=== PATIENT | male | born 1940 | race Caucasian/White ===

== ENCOUNTER 2018-02-03 00:14 | Inpatient (IN) | payer MEDICARE, BC ==
[~2018-02-03] VITALS: Ht 185.4 cm; Wt 103.1 kg
[2018-02-03 00:35] VITALS: BP 137/93
[2018-02-03] MEDS ORDERED: MAG HYDROX/AL HYDROX/SIMETH 30 ML ORAL.SUSP PO PRN (00:45)
[2018-02-03] MEDS ORDERED: ACETAMINOPHEN 325 MG TABLET PO PRN (00:45)
[2018-02-03] MEDS ORDERED: MAGNESIUM HYDROXIDE 2,400 MG/30 ML ORAL.SUSP. PO PRN (00:45)
[2018-02-03] MEDS ORDERED: LEVO50TA5 PO (00:59)
[2018-02-03] MEDS ORDERED: CLON0.5T11 PO (00:59)
[2018-02-03] MEDS ORDERED: AMLO5TAB2 PO (00:59)
[2018-02-03] MEDS ORDERED: OLAN5TAB5 PO (00:59)
[2018-02-03] MEDS ORDERED: POLY17PO5 PO (00:59)
[2018-02-03] MEDS ORDERED: MELA3TAB2 PO ×2 (00:59)
[2018-02-03] MEDS ORDERED: OLAN2.5T3 PO (00:59)
[2018-02-03] MEDS ORDERED: NON FORMULARY ITEM (Melatonin 5 MG) PO PRN (01:00)
[2018-02-03] MEDS ORDERED: clonazePAM 0.5 MG TABLET PO PRN (01:00)
[2018-02-03 05:50] VITALS: BP 145/92
[2018-02-03] MEDS: LEVOTHYROXINE 50 MCG TABLET PO SCH (06:26)
[2018-02-03 08:15] LABS: BASO # 0.1 x10^3/uL (0.0-0.2); BASO % 1 % (0-3); EOS # 0.1 x10^3/uL (0.0-0.7); EOS % 2 % (0-3); HEMATOCRIT 54.2 % (39.0-53.0); HEMOGLOBIN 18.9 g/dL (13.0-17.5); LYMPH # 1.7 x10^3/uL (1.0-4.8); LYMPH % 27 % (24-48); MEAN CORPUSCULAR HEMOGLOBIN 34 pg (25-35); MEAN CORPUSCULAR HGB CONC 35 g/dL (31-37); MEAN CORPUSCULAR VOLUME 97 fL (79-100); MONO # 0.6 x10^3/uL (0.0-1.1); MONO % 10 % (0-9); NEUT # 3.8 x10^3uL (1.8-7.7); NEUT % 60 % (31-73); PLATELET COUNT 187 x10^3/uL (140-400); RED BLOOD COUNT 5.59 x10^6/uL (4.30-5.70); RED CELL DISTRIBUTION WIDTH 13.2 % (11.5-14.5); WHITE BLOOD COUNT 6.3 x10^3/uL (4.0-11.0)
[2018-02-03 08:28] LABS: CALCIUM 9.6 mg/dL (8.5-10.1); CREATININE 1.4 mg/dL (0.7-1.3); GFR 48.9; POTASSIUM 3.9 mmol/L (3.5-5.1); TOTAL BILIRUBIN 0.8 mg/dL (0.2-1.0); TOTAL PROTEIN 8.2 g/dL (6.4-8.2)
[2018-02-03] MEDS ORDERED: POLYETHYLENE GLYCOL 3350 17 GM PACKET. PO PRN (09:00)
[2018-02-03] MEDS: amLODIPine BESYLATE 5 MG TABLET PO SCH (09:53)
[2018-02-03 14:17] LABS: THYROID STIM HORMONE (TSH) 2.454 uIU/mL (0.358-3.740)
[2018-02-03 16:00] VITALS: BP 123/79
[2018-02-03] MEDS: CHOLECALCIFEROL (VITAMIN D3) 50,000 UNIT CAPSULE PO SCH (17:15)
--- NOTE | 2018-02-03 21:20 | PDOC ---
Exam Note: Maurice Note: Please also refer to the separate dictated note~for this date of service dictated separately.~Patient seen individually. Discussed the patient with Nursing staff reviewed the chart.~Reviewed interim history and current functioning. Reviewed vital signs,~Labs/ Radiology~and current medications noted below. Continue current treatment with the changes noted in the dictated addendum note Assessment: Vital Signs: Vital Signs Date Time Temp Pulse Resp B/P (MAP) Pulse Ox O2 Delivery O2 Flow Rate FiO2 02/03/18 16:00 98.2 88 16 123/79 (94) 94 I&O Intake and Output 02/03/18 07:00 Intake Total 0 ml Balance 0 ml Intake Oral 0 ml # Voids 1 Labs: Laboratory Tests Test 02/03/18 07:51 White Blood Count 6.3 x10^3/uL (4.0-11.0) Red Blood Count 5.59 x10^6/uL (4.30-5.70) Hemoglobin 18.9 g/dL (13.0-17.5) H Hematocrit 54.2 % (39.0-53.0) H Mean Corpuscular Volume 97 fL (79-100) Mean Corpuscular Hemoglobin 34 pg (25-35) Mean Corpuscular Hemoglobin Concent 35 g/dL (31-37) Red Cell Distribution Width 13.2 % (11.5-14.5) Platelet Count 187 x10^3/uL (140-400) Neutrophils (%) (Auto) 60 % (31-73) Lymphocytes (%) (Auto) 27 % (24-48) Monocytes (%) (Auto) 10 % (0-9) H Eosinophils (%) (Auto) 2 % (0-3) Basophils (%) (Auto) 1 % (0-3) Neutrophils # (Auto) 3.8 x10^3uL (1.8-7.7) Lymphocytes # (Auto) 1.7 x10^3/uL (1.0-4.8) Monocytes # (Auto) 0.6 x10^3/uL (0.0-1.1) Eosinophils # (Auto) 0.1 x10^3/uL (0.0-0.7) Basophils # (Auto) 0.1 x10^3/uL (0.0-0.2) Sodium Level 141 mmol/L (136-145) Potassium Level 3.9 mmol/L (3.5-5.1) Chloride Level 104 mmol/L (98-107) Carbon Dioxide Level 30 mmol/L (21-32) Anion Gap 7 (6-14) Blood Urea Nitrogen 13 mg/dL (8-26) Creatinine 1.4 mg/dL (0.7-1.3) H Estimated GFR (Cockcroft-Gault) 48.9 BUN/Creatinine Ratio 9 (6-20) Glucose Level 88 mg/dL (70-99) Calcium Level 9.6 mg/dL (8.5-10.1) Magnesium Level 2.0 mg/dL (1.8-2.4) Iron Level 106 ug/dL (65-175) Total Iron Binding Capacity 307 ug/dL (250-450) Iron Saturation 35 % (15-34) H Total Bilirubin 0.8 mg/dL (0.2-1.0) Aspartate Amino Transferase (AST) 26 U/L (15-37) Alanine Aminotransferase (ALT) 29 U/L (16-63) Alkaline Phosphatase 83 U/L (46-116) Total Protein 8.2 g/dL (6.4-8.2) Albumin 4.0 g/dL (3.4-5.0) Albumin/Globulin Ratio 1.0 (1.0-1.7) Triglycerides Level 97 mg/dL (0-150) Cholesterol Level 154 mg/dL (0-200) LDL Cholesterol, Calculated 94 mg/dL (0-100) VLDL Cholesterol, Calculated 19 mg/dL (0-40) Non-HDL Cholesterol Calculated 113 mg/dL (0-129) HDL Cholesterol 41 mg/dL (40-60) Cholesterol/HDL Ratio 3.0 Vitamin B12 Level 304 pg/mL (247-911) 25-Hydroxy Vitamin D Total 20.0 ng/mL (30-100) L Thyroid Stimulating Hormone (TSH) 2.454 uIU/mL (0.358-3.740) Treponema pallidum Antibody Nonreactive (Nonreactive) Current Medications: Meds: Current Medications Acetaminophen (Tylenol) 650 mg PRN Q6HRS PRN PO PAIN / TEMP; Start 02/03/18 at 00:45 Al Hydroxide/Mg Hydroxide (Mylanta Plus Xs) 15 ml PRN AFTMEALHC PRN PO DYSPEPSIA; Start 7/24/18 at 00:45 Magnesium Hydroxide (Milk Of Magnesia) 2,400 mg PRN QHS PRN PO CONSTIPATION; Start 02/03/18 at 00:45 Clonazepam (KlonoPIN) 0.5 mg PRN BID PRN PO ANXIETY / AGITATION; Start at 01:00 Olanzapine (ZyPREXA ZYDIS) 2.5 mg PRN DAILY PRN PO ANXIETY / AGITATION; Start 02/03/18 at 01:00 Amlodipine Besylate (Norvasc) 5 mg DAILY PO Last administered on 02/03/18at 09: 53; Start 02/03/18 at 09:00 Levothyroxine Sodium (Synthroid) 50 mcg DAILY07 PO Last administered on at 06:26; Start 02/03/18 at 07:00 Melatonin 3 mg PRN QHS PRN PO INSOMNIA; Start 02/03/18 at 01:15 Non-Formulary Medication (Melatonin ) 5 mg PRN QHS PRN PO INSOMNIA; Start 02/03 at 01:00; Status UNV Olanzapine (ZyPREXA) 2.5 mg QHS PO ; Start 02/03/18 at 21:00 Polyethylene Glycol (miraLAX) 17 gm PRN DAILY PRN PO CONSTIPATION; Start at 09:00 Vitamin D (Vitamin D3) 50,000 unit WEEKLY PO Last administered on 02/03/18at 17: 15; Start 02/03/18 at 15:45 Active Scripts Active Reported Miralax (Polyethylene Glycol 3350) 17 Gm Powd.pack 17 Gm PO PRN DAILY PRN Zyprexa Zydis (Olanzapine) 5 Mg Tab.rapdis 2.5 Mg PO PRN DAILY PRN Melatonin 3 Mg Tablet 5 Mg PO PRN QHS PRN Clonazepam 0.5 Mg Tablet 0.5 Mg PO PRN BID PRN Levothyroxine Sodium 50 Mcg Tablet 50 Mcg PO DAILYAC Zyprexa (Olanzapine) 2.5 Mg Tablet 2.5 Mg PO QHS Melatonin 3 Mg Tablet 1 Mg PO QHS Amlodipine Besylate 5 Mg Tablet 5 Mg PO DAILY I have reviewed the current psychotropics carefully including drug interactions. Risk benefit ratio favors no change other than as noted in my dictated progress note. Diagnosis: Problems: (1) Bipolar affective disorder, mixed (2) Anxiety disorder (3) Impulse control disorder (4) Mild cognitive disorder YENY BRONSON MD Feb 03, 2018 21:20
[2018-02-03] MEDS: OLANZapine 2.5 MG TABLET PO SCH (22:00)
--- NOTE | 2018-02-03 23:33 | CONS ---
DATE OF CONSULTATION: 02/03/2018 REASON FOR CONSULTATION: Medical management. HISTORY OF PRESENT ILLNESS: The patient is a 77-year-old male patient who was apparently evaluated at [facility] Emergency Room where he was admitted after his primary care physician started him on Seroquel. He apparently became unsteady and was seen in the Emergency Room at [facility], stating that where his medication was switched to Zyprexa for his bipolar 1 disorder with intermittent agitation. However, the patient expressed suicidal ideation and was admitted [facility] for inpatient psychiatric stabilization. PAST MEDICAL HISTORY: Significant for hypertension, hyperlipidemia, paroxysmal atrial fibrillation, hypothyroidism, carotid artery stenosis as well as ascending aortic aneurysm. He is also known to have carpal tunnel syndrome, gout, lumbar and cervical spondylosis, osteoarthritis, Parkinson disease, peripheral neuropathy, and seborrheic keratosis. PAST SURGICAL HISTORY: Significant for cataract extraction with intraocular implant, open reduction and internal fixation of fractured ankle, rotator cuff repair, skin biopsy, skin cancer excision, tonsillectomy, right total knee arthroplasty, varicose vein surgery and vasectomy. PAST PSYCHIATRIC HISTORY: Significant for bipolar disorder with episodes of depression and claus. FAMILY HISTORY: Positive for Parkinson disease in his mother as well as colon cancer. His father has hypertension, heart disease. SOCIAL HISTORY: He is , lives with his . He has 2 children. He is currently retired. He is a former smoker, smoked cigarettes, pipes and cigars, quit in 03/1975. He never used smokeless tobacco. He drinks alcohol occasionally. He does not use any drugs. REVIEW OF SYSTEMS: As per history of present illness. The patient continued to voice his wishes to kill himself, although he does not have any plans. He was extremely disorganized, difficult to follow his trial of his thought. PHYSICAL EXAMINATION: GENERAL: However, when I examined him, he looked well and was clearly in no apparent respiratory distress. There was no pallor, jaundice or cyanosis. No lymphadenopathy, no thyromegaly. No jugular venous distention. No limb edema. VITAL SIGNS: His heart rate was 67, blood pressure 145/92, temperature was 97.2, respiratory rate was 18 and oxygen saturation was 94% on room air. HEAD, EYES, EARS, NOSE AND THROAT: Showed normocephalic, atraumatic. NECK: Supple. HEART: Showed normal first and second sounds. No gallop, rub or murmur. CHEST: Clear to auscultation. No crepitation or rhonchi. ABDOMEN: Distended, soft, nontender. NEUROLOGIC: He is awake, alert, but very disorganized with flight of ideas; however, all his cranial nerves are intact. EXTREMITIES: He moves extremities without difficulty, ambulates with a walker without any assistance. SKIN: Especially of his face showed that he has seborrheic dermatitis. LABORATORY DATA: Showed a white cell count of 6300, hemoglobin was 19, hematocrit 54, MCV 97 and platelet count of 187,000. His chemistry showed a serum sodium 141, potassium 3.9, chloride 104, bicarbonate 30, anion gap of 7, BUN 13, creatinine 1.4. Estimated GFR was 49 mL per minute. His glucose was 88, calcium 9.6, and magnesium was 2. His serum iron was 106, TIBC was ____. Iron saturation was 35. Total bilirubin, AST, ALT, alkaline phosphatase were normal. Total protein 8.2, albumin 4. Serum triglycerides were 97. Total cholesterol was 154, LDL was 94, VLDL was 19, HDL was 41, the ratio was 3. His vitamin B12 was 304 picograms. 25-hydroxy vitamin D3 was 20. TSH was 2.45. His treponema pallidum antibodies were nonreactive. IMPRESSION AND PLAN: In summary, this is a 77-year-old male patient who was transferred from [facility] on the account of suicidal ideation. He is known to have manic depressive disorder. He is extremely disorganized with marked flight of ideas. Medically, he has numerous medical problems including hypertension, hyperlipidemia, paroxysmal atrial fibrillation, hypothyroidism. He has gout, cervical, lumbar spondylosis, Parkinson disease, and peripheral neuropathy. His lab works showed that he has chronic kidney disease and vitamin D deficiency. He is currently on following medications: Amlodipine besylate 5 mg once a day, clonazepam 0.5 mg twice a day, olanzapine 2.5 mg at bedtime, olanzapine 2.5 mg daily p.r.n. for agitation, polyethylene glycol 17 grams daily p.r.n. for constipation, levothyroxine sodium 50 mcg daily, melatonin 3 mg at bedtime. PLAN: My plan is to start him on cholecalciferol, vitamin D3 50,000 units once a week. 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 He said that he quit smoking about [address]. Thank [address] Liang for allowing me to participate in the care of this patient. LISA WONG MD DR: FELTON/bryan JOB#: [id number] / [id number]
[2018-02-04 03:07] LABS: HEMOGLOBIN A1C 4.8 % (4.8-5.6)
[2018-02-04 03:08] LABS: THYROXINE 7.5 ug/dL (4.5-12.0)
[2018-02-04 05:39] LABS: BACTERIA,URINE 0 /HPF (0-FEW); BILIRUBIN,URINE NEG (NEG); CLARITY,URINE CLEAR; COLOR,URINE YELLOW; GLUCOSE,URINE NEG (NEG); NITRITE,URINE NEG (NEG); RBC,URINE 0 /HPF (0-2); SQUAMOUS EPITHELIAL CELL,UR OCC /LPF; UROBILINOGEN,URINE 0.2 mg/dL (0.2 mg/dL); WBC,URINE RARE /HPF (0-4)
[2018-02-04 06:07] VITALS: BP 136/83
[2018-02-04] MEDS: amLODIPine BESYLATE 5 MG TABLET PO SCH (08:06)
[2018-02-04] MEDS: LEVOTHYROXINE 50 MCG TABLET PO SCH (08:06)
--- NOTE | 2018-02-04 12:58 | HP ---
ADMIT DATE: 02/03/2018 PSYCHIATRIC ADMISSION HISTORY/EVALUATION This late entry02/03/2018 covers elements not covered in my initial note 02/03/2018. HISTORY OF ADMISSION: I met with the patient at length in his room the evening of 02/03/2018. Discussed with nursing staff, reviewed the chart. Previously, I had discussed with nursing staff on 2 or 3 occasions including prior to the patient's admission to assess his symptoms requiring inpatient psychiatric hospitalization after we were contacted from [facility]. He was brought in by his and admitted since it had a fall soon after he was started on Seroquel for his bipolar disorder. The patient has a long history of bipolar disorder with at least 7 past inpatient psychiatric hospitalizations, the last one being 10 years ago. He has been psychotic, confused, and having passive suicidal ideation. He was deemed a danger to himself, having failed outpatient psychiatric interventions. He is referred for inpatient psychiatric stabilization. CHIEF COMPLAINT: "I don't know why I am here." HISTORY OF PRESENT ILLNESS: The patient has a history of bipolar disorder, mixed with psychotic features. He has been residing at home and outpatient psychiatric treatment and recently started on Seroquel on account of psychotic symptoms, mood symptoms, irritability and mood lability. Apparently, this affected his gait and he had a fall, was admitted to [facility] as noted. He has had passive suicidal ideation. Denies active suicidal ideation, intent or plan. He has been in outpatient psychiatric treatment with Dr. Dennis Hernandez in [place]. No alcohol or drug abuse. PAST PSYCHIATRIC HISTORY: As noted above. PAST MEDICAL HISTORY: Status post fall. History of carpal tunnel syndrome, osteoarthritis, atrial fibrillation, keratosis, back pain, cervical spondylosis, polyps, hypertension, hyperlipidemia, hypothyroidism, lumbar spondylosis. DIET: Regular. Takes medications whole. CODE STATUS: Full code. ALLERGIES: MENTHOL and PEPPERMINT. ACCU-CHEKS: None. CURRENT PSYCHOTROPICS: Melatonin 2 mg at bedtime, Zyprexa 2.5 mg at bedtime, Klonopin 0.5 mg b.i.d. p.r.n., melatonin to 5 mg at bedtime. 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 REACTION TO HOSPITALIZATION: The patient accepting of it. He has been admitted by his who is his DPOA. ASSETS: Supportive . MENTAL STATUS EXAM: The patient was seen individually evening of 02/03/2018 in his room. He is oriented to place, situation, person. He was able to do only one step on serial sevens, able to spell world forward no error, backward. Unable to spell it accurately attempted it with 3 errors. Somewhat tangential in his thought processes at times has passive suicidal ideation. No active suicidal ideation. Mood appears somewhat dysphoric, depressed, somewhat paranoid. No homicidal ideation. Intellect average. Insight good. Judgment intact. IMPRESSION: Bipolar 1 disorder, mixed versus depressed with psychotic features; cognitive disorder, unspecified; anxiety disorder, unspecified. Rest as above. REACTION TO HOSPITALIZATION: The patient accepting of if. He has been geropsychiatry unit at [facility]. I will see the patient daily individually from a psychiatric standpoint, medical followup per Dr. Mcdonough/. Continue the patient on his current psychotropics keep him off the Seroquel. Observe baseline, then adjust as clinically indicated. Consider Lamictal for his Bipolar disorder, depressed. Avoid atypical antipsychotics, but may consider Latuda as well. I f manic spells are evident. On further review of his history may consider Depakote or Trileptal as a mood stabilizer. YENY BRONSON MD DR: THEO/bryan JOB#: [id number] / [id number]
[2018-02-04 16:24] VITALS: BP 125/72
[2018-02-04] MEDS: OLANZapine 2.5 MG TABLET PO SCH (20:09)
[2018-02-04] MEDS: OXcarbazepine 150 MG TABLET. PO SCH (20:21)
--- NOTE | 2018-02-04 21:03 | PDOC ---
Exam Note: Maurice Note: Please also refer to the separate dictated note~for this date of service dictated separately.~Patient seen individually. Discussed the patient with Nursing staff reviewed the chart.~Reviewed interim history and current functioning. Reviewed vital signs,~Labs/ Radiology~and current medications noted below. Continue current treatment with the changes noted in the dictated addendum note Assessment: Vital Signs: Vital Signs Date Time Temp Pulse Resp B/P (MAP) Pulse Ox O2 Delivery O2 Flow Rate FiO2 02/04/18 16:24 97.4 70 17 125/72 (89) 95 Room Air I&O Intake and Output 02/04/18 07:00 Intake Total 1320 ml Balance 1320 ml Intake Oral 1320 ml Labs: Laboratory Tests Test 02/04/18 05:20 Urine Collection Type Unknown Urine Color Yellow Urine Clarity Clear Urine pH 6.5 Urine Specific [place] 1.010 Urine Protein Neg (NEG-TRACE) Urine Glucose (UA) Neg mg/dL (NEG) Urine Ketones (Stick) Neg mg/dL (NEG) Urine Blood Neg (NEG) Urine Nitrite Neg (NEG) Urine Bilirubin Neg (NEG) Urine Urobilinogen Dipstick 0.2 mg/dL (0.2 mg/dL) Urine Leukocyte Esterase Neg (NEG) Urine RBC 0 /HPF (0-2) Urine WBC Rare /HPF (0-4) Urine Squamous Epithelial Cells Occ /LPF Urine Bacteria 0 /HPF (0-FEW) Current Medications: Meds: Current Medications Acetaminophen (Tylenol) 650 mg PRN Q6HRS PRN PO PAIN / TEMP; Start 02/03/18 at 00:45 Al Hydroxide/Mg Hydroxide (Mylanta Plus Xs) 15 ml PRN AFTMEALHC PRN PO DYSPEPSIA; Start 02/03/18 at 00:45 Magnesium Hydroxide (Milk Of Magnesia) 2,400 mg PRN QHS PRN PO CONSTIPATION; Start 02/03/18 at 00:45 Clonazepam (KlonoPIN) 0.5 mg PRN BID PRN PO ANXIETY / AGITATION; Start at 01:00 Olanzapine (ZyPREXA ZYDIS) 2.5 mg PRN DAILY PRN PO ANXIETY / AGITATION; Start 02/03/18 at 01:00 Amlodipine Besylate (Norvasc) 5 mg DAILY PO Last administered on 02/04/18at 08: 06; Start 02/03/18 at 09:00 Levothyroxine Sodium (Synthroid) 50 mcg DAILY07 PO Last administered on at 08:06; Start 02/03/18 at 07:00 Melatonin 3 mg PRN QHS PRN PO INSOMNIA; Start 02/03/18 at 01:15 Non-Formulary Medication (Melatonin ) 5 mg PRN QHS PRN PO INSOMNIA; Start 02/03 at 01:00; Status UNV Olanzapine (ZyPREXA) 2.5 mg QHS PO Last administered on 02/04/18at 20:09; Start 02/03/18 at 21:00 Polyethylene Glycol (miraLAX) 17 gm PRN DAILY PRN PO CONSTIPATION; Start at 09:00 Vitamin D (Vitamin D3) 50,000 unit WEEKLY PO Last administered on 02/03/18at 17: 15; Start 02/03/18 at 15:45 Oxcarbazepine (Trileptal) 150 mg BID PO Last administered on 02/04/18at 20:21; Start 02/04/18 at 21:00 Active Scripts Active Reported Miralax (Polyethylene Glycol 3350) 17 Gm Powd.pack 17 Gm PO PRN DAILY PRN Zyprexa Zydis (Olanzapine) 5 Mg Tab.rapdis 2.5 Mg PO PRN DAILY PRN Melatonin 3 Mg Tablet 5 Mg PO PRN QHS PRN Clonazepam 0.5 Mg Tablet 0.5 Mg PO PRN BID PRN Levothyroxine Sodium 50 Mcg Tablet 50 Mcg PO DAILYAC Zyprexa (Olanzapine) 2.5 Mg Tablet 2.5 Mg PO QHS Melatonin 3 Mg Tablet 1 Mg PO QHS Amlodipine Besylate 5 Mg Tablet 5 Mg PO DAILY I have reviewed the current psychotropics carefully including drug interactions. Risk benefit ratio favors no change other than as noted in my dictated progress note. Diagnosis: Problems: (1) Bipolar affective disorder, mixed (2) Anxiety disorder (3) Impulse control disorder (4) Mild cognitive disorder YENY BRONSON MD Feb 04, 2018 21:03
[2018-02-05 06:12] VITALS: BP 129/86
[2018-02-05] MEDS: LEVOTHYROXINE 50 MCG TABLET PO SCH (07:16)
[2018-02-05] MEDS: amLODIPine BESYLATE 5 MG TABLET PO SCH (08:17)
[2018-02-05] MEDS: OXcarbazepine 150 MG TABLET. PO SCH ×2 (08:18→19:41)
[2018-02-05 16:03] VITALS: BP 148/88
[2018-02-05] MEDS: OLANZapine 2.5 MG TABLET PO SCH (19:41)
[2018-02-05] MEDS: MELATONIN 3 MG TABLET PO PRN (19:42)
--- NOTE | 2018-02-05 20:53 | PDOC ---
Exam Note: Maurice Note: Please also refer to the separate dictated note~for this date of service dictated separately.~Patient seen individually. Discussed the patient with Nursing staff reviewed the chart.~Reviewed interim history and current functioning. Reviewed vital signs,~Labs/ Radiology~and current medications noted below. Continue current treatment with the changes noted in the dictated addendum note Assessment: Vital Signs: Vital Signs Date Time Temp Pulse Resp B/P (MAP) Pulse Ox O2 Delivery O2 Flow Rate FiO2 02/05/18 16:03 98.2 91 20 148/88 (108) 96 02/04/18 16:24 Room Air I&O Intake and Output 02/05/18 06:59 Intake Total 840 ml Balance 840 ml Intake Oral 840 ml Current Medications: Meds: Current Medications Acetaminophen (Tylenol) 650 mg PRN Q6HRS PRN PO PAIN / TEMP; Start 02/03/18 at 00:45 Al Hydroxide/Mg Hydroxide (Mylanta Plus Xs) 15 ml PRN AFTMEALHC PRN PO DYSPEPSIA; Start 02/03/18 at 00:45 Magnesium Hydroxide (Milk Of Magnesia) 2,400 mg PRN QHS PRN PO CONSTIPATION; Start 02/03/18 at 00:45 Clonazepam (KlonoPIN) 0.5 mg PRN BID PRN PO ANXIETY / AGITATION; Start at 01:00; Stop 02/05/18 at 10:58; Status DC Olanzapine (ZyPREXA ZYDIS) 2.5 mg PRN DAILY PRN PO ANXIETY / AGITATION; Start 02/03/18 at 01:00 Amlodipine Besylate (Norvasc) 5 mg DAILY PO Last administered on 02/05/18at 08: 17; Start 02/03/18 at 09:00 Levothyroxine Sodium (Synthroid) 50 mcg DAILY07 PO Last administered on at 07:16; Start 02/03/18 at 07:00 Melatonin 3 mg PRN QHS PRN PO INSOMNIA Last administered on 02/05/18at 19:42; Start 02/03/18 at 01:15 Non-Formulary Medication (Melatonin ) 5 mg PRN QHS PRN PO INSOMNIA; Start 02/03 at 01:00; Status UNV Olanzapine (ZyPREXA) 2.5 mg QHS PO Last administered on 02/05/18at 19:41; Start 02/03/18 at 21:00 Polyethylene Glycol (miraLAX) 17 gm PRN DAILY PRN PO CONSTIPATION; Start at 09:00 Vitamin D (Vitamin D3) 50,000 unit WEEKLY PO Last administered on 02/03/18at 17: 15; Start 02/03/18 at 15:45 Oxcarbazepine (Trileptal) 150 mg BID PO Last administered on 02/05/18at 19:41; Start 02/04/18 at 21:00 Active Scripts Active Reported Miralax (Polyethylene Glycol 3350) 17 Gm Powd.pack 17 Gm PO PRN DAILY PRN Zyprexa Zydis (Olanzapine) 5 Mg Tab.rapdis 2.5 Mg PO PRN DAILY PRN Melatonin 3 Mg Tablet 5 Mg PO PRN QHS PRN Clonazepam 0.5 Mg Tablet 0.5 Mg PO PRN BID PRN Levothyroxine Sodium 50 Mcg Tablet 50 Mcg PO DAILYAC Zyprexa (Olanzapine) 2.5 Mg Tablet 2.5 Mg PO QHS Melatonin 3 Mg Tablet 1 Mg PO QHS Amlodipine Besylate 5 Mg Tablet 5 Mg PO DAILY I have reviewed the current psychotropics carefully including drug interactions. Risk benefit ratio favors no change other than as noted in my dictated progress note. Diagnosis: Problems: (1) Bipolar affective disorder, mixed (2) Anxiety disorder (3) Impulse control disorder (4) Mild cognitive disorder YENY BRONSON MD Feb 05, 2018 20:53
[2018-02-06 05:45] VITALS: BP 126/81
[2018-02-06] MEDS: LEVOTHYROXINE 50 MCG TABLET PO SCH (05:54)
[2018-02-06] MEDS: amLODIPine BESYLATE 5 MG TABLET PO SCH (08:19)
[2018-02-06] MEDS: OXcarbazepine 150 MG TABLET. PO SCH ×2 (08:19→19:27)
[2018-02-06 16:05] VITALS: BP 133/85
[2018-02-06] MEDS: OLANZapine 2.5 MG TABLET PO SCH (19:28)
[2018-02-06] MEDS: MELATONIN 3 MG TABLET PO PRN (19:28)
--- NOTE | 2018-02-06 20:40 | PDOC ---
Exam Note: Maurice Note: Please also refer to the separate dictated note~for this date of service dictated separately.~Patient seen individually. Discussed the patient with Nursing staff reviewed the chart.~Reviewed interim history and current functioning. Reviewed vital signs,~Labs/ Radiology~and current medications noted below. Continue current treatment with the changes noted in the dictated addendum note Assessment: Vital Signs: Vital Signs Date Time Temp Pulse Resp B/P (MAP) Pulse Ox O2 Delivery O2 Flow Rate FiO2 02/06/18 16:05 98.8 71 18 133/85 (101) 98 02/04/18 16:24 Room Air I&O Intake and Output 02/06/18 06:59 Intake Total 960 ml Balance 960 ml Intake Oral 960 ml Current Medications: Meds: Current Medications Acetaminophen (Tylenol) 650 mg PRN Q6HRS PRN PO PAIN / TEMP; Start 02/03/18 at 00:45 Al Hydroxide/Mg Hydroxide (Mylanta Plus Xs) 15 ml PRN AFTMEALHC PRN PO DYSPEPSIA; Start 02/03/18 at 00:45 Magnesium Hydroxide (Milk Of Magnesia) 2,400 mg PRN QHS PRN PO CONSTIPATION; Start 02/03/18 at 00:45 Clonazepam (KlonoPIN) 0.5 mg PRN BID PRN PO ANXIETY / AGITATION; Start at 01:00; Stop 02/05/18 at 10:58; Status DC Olanzapine (ZyPREXA ZYDIS) 2.5 mg PRN DAILY PRN PO ANXIETY / AGITATION; Start 02/03/18 at 01:00 Amlodipine Besylate (Norvasc) 5 mg DAILY PO Last administered on 02/06/18at 08: 19; Start 02/03/18 at 09:00 Levothyroxine Sodium (Synthroid) 50 mcg DAILY07 PO Last administered on at 05:54; Start 02/03/18 at 07:00 Melatonin 3 mg PRN QHS PRN PO INSOMNIA Last administered on 02/06/18at 19:28; Start 02/03/18 at 01:15 Non-Formulary Medication (Melatonin ) 5 mg PRN QHS PRN PO INSOMNIA; Start 02/03 at 01:00; Status UNV Olanzapine (ZyPREXA) 2.5 mg QHS PO Last administered on 02/06/18at 19:28; Start 02/03/18 at 21:00 Polyethylene Glycol (miraLAX) 17 gm PRN DAILY PRN PO CONSTIPATION; Start at 09:00 Vitamin D (Vitamin D3) 50,000 unit WEEKLY PO Last administered on 02/03/18at 17: 15; Start 02/03/18 at 15:45 Oxcarbazepine (Trileptal) 150 mg BID PO Last administered on 02/06/18at 19:27; Start 02/04/18 at 21:00 Active Scripts Active Reported Miralax (Polyethylene Glycol 3350) 17 Gm Powd.pack 17 Gm PO PRN DAILY PRN Zyprexa Zydis (Olanzapine) 5 Mg Tab.rapdis 2.5 Mg PO PRN DAILY PRN Melatonin 3 Mg Tablet 5 Mg PO PRN QHS PRN Clonazepam 0.5 Mg Tablet 0.5 Mg PO PRN BID PRN Levothyroxine Sodium 50 Mcg Tablet 50 Mcg PO DAILYAC Zyprexa (Olanzapine) 2.5 Mg Tablet 2.5 Mg PO QHS Melatonin 3 Mg Tablet 1 Mg PO QHS Amlodipine Besylate 5 Mg Tablet 5 Mg PO DAILY I have reviewed the current psychotropics carefully including drug interactions. Risk benefit ratio favors no change other than as noted in my dictated progress note. Diagnosis: Problems: (1) Bipolar affective disorder, mixed (2) Anxiety disorder (3) Impulse control disorder (4) Mild cognitive disorder YENY BRONSON MD Feb 06, 2018 20:40
[2018-02-07] MEDS: LEVOTHYROXINE 50 MCG TABLET PO SCH (05:54)
[2018-02-07 06:06] VITALS: BP 113/60
[2018-02-07] MEDS: OXcarbazepine 150 MG TABLET. PO SCH ×2 (08:06→19:54)
[2018-02-07] MEDS: amLODIPine BESYLATE 5 MG TABLET PO SCH (08:06)
--- NOTE | 2018-02-07 11:28 | PN ---
DATE: 02/04/2018 PSYCHIATRIC PROGRESS NOTE This is a late entry 02/04/2018 covers elements not covered in my initial note. SUBJECTIVE: I met with the patient in the evening in his room. The patient slept 5 hours previous evening, remains somewhat confused, withdrawn, was lying in bed, not very interactive with me. Nursing staff have questioned him earlier. He denies active suicidal ideation, but he had significant suicidal ideation prior to admission and we discussed moving him closer to the nursing station. Nursing staff called me back close to midnight on 02/04/2018 and the patient was denying suicidal ideation. Room was left unchanged consequently. We will check a CT head if not done at [facility], but on later checking it was done, unremarkable. REVIEW OF SYSTEMS: No CV, , pulmonary, eye, ENT system symptoms on review. Admits to some tiredness. MENTAL STATUS EXAM: Oriented to himself and situation. Speech moderate latency, often responses monosyllabic. Abstraction fair, computation impaired, language function intact, attention span short. Mood and affect somewhat withdrawn. LABORATORY DATA: Reviewed. IMPRESSION: Bipolar 1 disorder, mixed with psychotic features; anxiety disorder, unspecified; cognitive disorder, unspecified. PLAN: Start Trileptal 150 mg twice a day as a mood stabilizer. Continue rest unchanged from initial note. MAN Michael BRONSON MD DR: THEO/bryan JOB#: [id number] / [id number]
--- NOTE | 2018-02-07 11:28 | PN ---
DATE: 02/05/2018 PSYCHIATRIC PROGRESS NOTE This is a late entry 02/05/2018, covers elements not covered in my initial note. SUBJECTIVE: I met with the patient in the evening, staffed at treatment team meeting with the entire team in the morning together with his , Hilda, attending the conference. Reviewed his history at length with Hilda. The patient has a long history of bipolar disorder, but most recently he had been off his psychotropics for about 2-1/2 years and still did reasonably well. Recently, he was appearing more psychotic, withdrawn, depressed and irritable, started on Seroquel apparently was increased quickly to 50 mg 3 times a day even though the said at the lower dosage he did "much better." The patient slept 5 hours previous evening. Appetite 100%. Reviewed history that he had been seeing [facility] nurse practitioner prior to admission. REVIEW OF SYSTEMS: No CV, , pulmonary, eye system symptoms on review. Ambulation impaired with walker. MENTAL STATUS EXAM: Oriented to himself, situation, met with him in his room. Abstraction fair, computation impaired, language function intact. Mood and affect somewhat withdrawn. LABORATORY DATA: Reviewed. IMPRESSION: Bipolar 1 disorder, depressed with psychotic features; anxiety disorder, unspecified; cognitive disorder, unspecified. PLAN: The patient has been started on Trileptal as a mood stabilizer. We may consider Wellbutrin as well as an antidepressant. Discussed all this with the patient's . YENY BRONSON MD DR: THEO/bryan JOB#: [id number] / [id number]
[2018-02-07 16:05] VITALS: BP 133/85
[2018-02-07] MEDS: OLANZapine 2.5 MG TABLET PO SCH (19:54)
[2018-02-07] MEDS: MELATONIN 3 MG TABLET PO PRN (19:55)
--- NOTE | 2018-02-07 22:45 | PDOC ---
Exam Note: Maurice Note: Please also refer to the separate dictated note~for this date of service dictated separately.~Patient seen individually. Discussed the patient with Nursing staff reviewed the chart.~Reviewed interim history and current functioning. Reviewed vital signs,~Labs/ Radiology~and current medications noted below. Continue current treatment with the changes noted in the dictated addendum note Assessment: Vital Signs: Vital Signs Date Time Temp Pulse Resp B/P (MAP) Pulse Ox O2 Delivery O2 Flow Rate FiO2 02/07/18 16:05 98.9 78 20 133/85 (101) 92 02/04/18 16:24 Room Air I&O Intake and Output 02/07/18 07:00 Intake Total 720 ml Balance 720 ml Intake Oral 720 ml # Bowel Movements 1 Current Medications: Meds: Current Medications Acetaminophen (Tylenol) 650 mg PRN Q6HRS PRN PO PAIN / TEMP; Start 02/03/18 at 00:45 Al Hydroxide/Mg Hydroxide (Mylanta Plus Xs) 15 ml PRN AFTMEALHC PRN PO DYSPEPSIA; Start 02/03/18 at 00:45 Magnesium Hydroxide (Milk Of Magnesia) 2,400 mg PRN QHS PRN PO CONSTIPATION; Start 02/03/18 at 00:45 Clonazepam (KlonoPIN) 0.5 mg PRN BID PRN PO ANXIETY / AGITATION; Start at 01:00; Stop 02/05/18 at 10:58; Status DC Olanzapine (ZyPREXA ZYDIS) 2.5 mg PRN DAILY PRN PO ANXIETY / AGITATION; Start 02/03/18 at 01:00 Amlodipine Besylate (Norvasc) 5 mg DAILY PO Last administered on 02/07/18at 08: 06; Start 02/03/18 at 09:00 Levothyroxine Sodium (Synthroid) 50 mcg DAILY07 PO Last administered on at 05:54; Start 02/03/18 at 07:00 Melatonin 3 mg PRN QHS PRN PO INSOMNIA Last administered on 02/07/18at 19:55; Start 02/03/18 at 01:15 Non-Formulary Medication (Melatonin ) 5 mg PRN QHS PRN PO INSOMNIA; Start 02/03 at 01:00; Status UNV Olanzapine (ZyPREXA) 2.5 mg QHS PO Last administered on 02/07/18at 19:54; Start 02/03/18 at 21:00 Polyethylene Glycol (miraLAX) 17 gm PRN DAILY PRN PO CONSTIPATION; Start at 09:00 Vitamin D (Vitamin D3) 50,000 unit WEEKLY PO Last administered on 02/03/18at 17: 15; Start 02/03/18 at 15:45 Oxcarbazepine (Trileptal) 150 mg BID PO Last administered on 02/07/18at 19:54; Start 02/04/18 at 21:00; Stop 02/07/18 at 21:50; Status DC Oxcarbazepine (Trileptal) 150 mg DAILY PO ; Start 02/08/18 at 09:00 Oxcarbazepine (Trileptal) 300 mg HS PO ; Start 02/08/18 at 21:00 Docusate Sodium (Colace) 100 mg BID PO ; Start 02/08/18 at 09:00 Active Scripts Active Reported Miralax (Polyethylene Glycol 3350) 17 Gm Powd.pack 17 Gm PO PRN DAILY PRN Zyprexa Zydis (Olanzapine) 5 Mg Tab.rapdis 2.5 Mg PO PRN DAILY PRN Melatonin 3 Mg Tablet 5 Mg PO PRN QHS PRN Clonazepam 0.5 Mg Tablet 0.5 Mg PO PRN BID PRN Levothyroxine Sodium 50 Mcg Tablet 50 Mcg PO DAILYAC Zyprexa (Olanzapine) 2.5 Mg Tablet 2.5 Mg PO QHS Melatonin 3 Mg Tablet 1 Mg PO QHS Amlodipine Besylate 5 Mg Tablet 5 Mg PO DAILY I have reviewed the current psychotropics carefully including drug interactions. Risk benefit ratio favors no change other than as noted in my dictated progress note. Diagnosis: Problems: (1) Bipolar affective disorder, mixed (2) Anxiety disorder (3) Impulse control disorder (4) Mild cognitive disorder YENY BRONSON MD Feb 07, 2018 22:45
[2018-02-08 05:55] VITALS: BP 120/73
[2018-02-08] MEDS: LEVOTHYROXINE 50 MCG TABLET PO SCH (05:58)
[2018-02-08] MEDS: amLODIPine BESYLATE 5 MG TABLET PO SCH (07:42)
[2018-02-08] MEDS: DOCUSATE SODIUM 100 MG CAPSULE PO SCH ×2 (07:44→20:40)
[2018-02-08] MEDS: OXcarbazepine 150 MG TABLET. PO SCH (07:44)
[2018-02-08 16:11] VITALS: BP 127/81
[2018-02-08] MEDS: OLANZapine 2.5 MG TABLET PO SCH (20:40)
[2018-02-08] MEDS: MELATONIN 3 MG TABLET PO PRN (20:44)
--- NOTE | 2018-02-08 20:53 | PDOC ---
Exam Note: Maurice Note: Please also refer to the separate dictated note~for this date of service dictated separately.~Patient seen individually. Discussed the patient with Nursing staff reviewed the chart.~Reviewed interim history and current functioning. Reviewed vital signs,~Labs/ Radiology~and current medications noted below. Continue current treatment with the changes noted in the dictated addendum note Assessment: Vital Signs: Vital Signs Date Time Temp Pulse Resp B/P (MAP) Pulse Ox O2 Delivery O2 Flow Rate FiO2 02/08/18 16:11 98.3 64 19 127/81 (96) 99 02/04/18 16:24 Room Air I&O Intake and Output 02/08/18 07:00 Intake Total 1200 ml Balance 1200 ml Intake Oral 1200 ml Current Medications: Meds: Current Medications Acetaminophen (Tylenol) 650 mg PRN Q6HRS PRN PO PAIN / TEMP; Start 02/03/18 at 00:45 Al Hydroxide/Mg Hydroxide (Mylanta Plus Xs) 15 ml PRN AFTMEALHC PRN PO DYSPEPSIA; Start 02/03/18 at 00:45 Magnesium Hydroxide (Milk Of Magnesia) 2,400 mg PRN QHS PRN PO CONSTIPATION; Start 02/03/18 at 00:45 Clonazepam (KlonoPIN) 0.5 mg PRN BID PRN PO ANXIETY / AGITATION; Start at 01:00; Stop 02/05/18 at 10:58; Status DC Olanzapine (ZyPREXA ZYDIS) 2.5 mg PRN DAILY PRN PO ANXIETY / AGITATION; Start 02/03/18 at 01:00 Amlodipine Besylate (Norvasc) 5 mg DAILY PO Last administered on 02/08/18at 07: 42; Start 02/03/18 at 09:00 Levothyroxine Sodium (Synthroid) 50 mcg DAILY07 PO Last administered on at 05:58; Start 02/03/18 at 07:00 Melatonin 3 mg PRN QHS PRN PO INSOMNIA Last administered on 02/08/18at 20:44; Start 02/03/18 at 01:15 Non-Formulary Medication (Melatonin ) 5 mg PRN QHS PRN PO INSOMNIA; Start 02/03 at 01:00; Status UNV Olanzapine (ZyPREXA) 2.5 mg QHS PO Last administered on 02/08/18at 20:40; Start 02/03/18 at 21:00 Polyethylene Glycol (miraLAX) 17 gm PRN DAILY PRN PO CONSTIPATION; Start at 09:00 Vitamin D (Vitamin D3) 50,000 unit WEEKLY PO Last administered on 02/03/18at 17: 15; Start 02/03/18 at 15:45 Oxcarbazepine (Trileptal) 150 mg BID PO Last administered on 02/07/18at 19:54; Start 02/04/18 at 21:00; Stop 02/07/18 at 21:50; Status DC Oxcarbazepine (Trileptal) 150 mg DAILY PO Last administered on 02/08/18 07:44 ; Start 02/08/18 at 09:00 Oxcarbazepine (Trileptal) 300 mg HS PO Last administered on 02/08/18at 20:41; Start 02/08/18 at 21:00 Docusate Sodium (Colace) 100 mg BID PO Last administered on 02/08/18at 20:40; Start 02/08/18 at 09:00 Active Scripts Active Reported Miralax (Polyethylene Glycol 3350) 17 Gm Powd.pack 17 Gm PO PRN DAILY PRN Zyprexa Zydis (Olanzapine) 5 Mg Tab.rapdis 2.5 Mg PO PRN DAILY PRN Melatonin 3 Mg Tablet 5 Mg PO PRN QHS PRN Clonazepam 0.5 Mg Tablet 0.5 Mg PO PRN BID PRN Levothyroxine Sodium 50 Mcg Tablet 50 Mcg PO DAILYAC Zyprexa (Olanzapine) 2.5 Mg Tablet 2.5 Mg PO QHS Melatonin 3 Mg Tablet 1 Mg PO QHS Amlodipine Besylate 5 Mg Tablet 5 Mg PO DAILY I have reviewed the current psychotropics carefully including drug interactions. Risk benefit ratio favors no change other than as noted in my dictated progress note. Diagnosis: Problems: (1) Bipolar affective disorder, mixed (2) Anxiety disorder (3) Impulse control disorder (4) Mild cognitive disorder YENY BRONSON MD Feb 08, 2018 20:53
--- NOTE | 2018-02-08 23:50 | PN ---
DATE: 02/06/2018 This is a late entry, 02/06/2018, covers the elements not covered in my initial note. SUBJECTIVE: I met with the patient in the evening. The patient slept 8-1/4 hours previous evening, remains somewhat withdrawn, resistive to shower, compliant with medications. REVIEW OF SYSTEMS: No CV, , pulmonary, eye, ENT system symptoms on review. Reliability fair. MENTAL STATUS EXAM: Oriented to himself and situation. Speech moderate often responses monosyllabic. Abstraction fair, computation impaired, language function intact, attention span short. Mood and affect remain somewhat withdrawn, depressed. Denies active suicidal ideation. LABORATORY DATA: Reviewed. IMPRESSION: Bipolar 1 disorder, depressed. Rest unchanged. PLAN: The patient does complain of constipation. We will start Colace for this and continue Trileptal as a mood stabilizer. May add Wellbutrin as an anti-depressant. MAN Michael BRONSON MD DR: THEO/bryan JOB#: [id number] / [id number]
--- NOTE | 2018-02-08 23:58 | PN ---
DATE: 02/07/2018 This is a late entry, 02/07/2018, covers the elements not covered in my initial note. SUBJECTIVE: I met with the patient in the evening. The patient slept 7-1/2 the hours previous evening, met with him in his room at length. He was irritable in the morning, compliant with his medications, coming out of the room somewhat more. He still complains of constipation. REVIEW OF SYSTEMS: No CV, , pulmonary, eye, ENT system symptoms on review. MENTAL STATUS EXAM: Reasonably oriented. Speech coherent, abstraction fair, computation impaired, language function intact. Mood is somewhat dysphoric. Affect, mood congruent. No active suicidal or homicidal ideation. LABORATORY DATA: Reviewed. IMPRESSION: Bipolar 1 disorder, depressed. Rest unchanged. PLAN: Increase Trileptal from 150 mg two times a day to 150 mg before noon, 300 mg at 1700. Consider Wellbutrin. Rest unchanged. YENY BRONSON MD DR: THEO/bryan JOB#: [id number] / [id number]
[2018-02-09] MEDS: LEVOTHYROXINE 50 MCG TABLET PO SCH (06:11)
[2018-02-09 06:28] VITALS: BP 116/73
[2018-02-09] MEDS: DOCUSATE SODIUM 100 MG CAPSULE PO SCH ×2 (08:34→20:31)
[2018-02-09] MEDS: OXcarbazepine 150 MG TABLET. PO SCH (08:34)
[2018-02-09] MEDS: amLODIPine BESYLATE 5 MG TABLET PO SCH (08:34)
[2018-02-09 16:34] VITALS: BP 127/87
--- NOTE | 2018-02-09 19:57 | PDOC ---
Exam Note: Maurice Note: Please also refer to the separate dictated note~for this date of service dictated separately.~Patient seen individually. Discussed the patient with Nursing staff reviewed the chart.~Reviewed interim history and current functioning. Reviewed vital signs,~Labs/ Radiology~and current medications noted below. Continue current treatment with the changes noted in the dictated addendum note Assessment: Vital Signs: Vital Signs Date Time Temp Pulse Resp B/P (MAP) Pulse Ox O2 Delivery O2 Flow Rate FiO2 02/09/18 16:34 97.8 82 18 127/87 (100) 93 02/04/18 16:24 Room Air I&O Intake and Output 02/09/18 06:59 Intake Total 1200 ml Balance 1200 ml Intake Oral 1200 ml Current Medications: Meds: Current Medications Acetaminophen (Tylenol) 650 mg PRN Q6HRS PRN PO PAIN / TEMP; Start 02/03/18 at 00:45 Al Hydroxide/Mg Hydroxide (Mylanta Plus Xs) 15 ml PRN AFTMEALHC PRN PO DYSPEPSIA; Start 02/03/18 at 00:45 Magnesium Hydroxide (Milk Of Magnesia) 2,400 mg PRN QHS PRN PO CONSTIPATION; Start 02/03/18 at 00:45 Clonazepam (KlonoPIN) 0.5 mg PRN BID PRN PO ANXIETY / AGITATION; Start at 01:00; Stop 02/05/18 at 10:58; Status DC Olanzapine (ZyPREXA ZYDIS) 2.5 mg PRN DAILY PRN PO ANXIETY / AGITATION; Start 02/03/18 at 01:00 Amlodipine Besylate (Norvasc) 5 mg DAILY PO Last administered on 02/09/18at 08: 34; Start 02/03/18 at 09:00 Levothyroxine Sodium (Synthroid) 50 mcg DAILY07 PO Last administered on at 06:11; Start 02/03/18 at 07:00 Melatonin 3 mg PRN QHS PRN PO INSOMNIA Last administered on 02/08/18at 20:44; Start 02/03/18 at 01:15 Non-Formulary Medication (Melatonin ) 5 mg PRN QHS PRN PO INSOMNIA; Start 02/03 at 01:00; Status UNV Olanzapine (ZyPREXA) 2.5 mg QHS PO Last administered on 02/08/18 20:40; Start 02/03/18 at 21:00 Polyethylene Glycol (miraLAX) 17 gm PRN DAILY PRN PO CONSTIPATION; Start at 09:00 Vitamin D (Vitamin D3) 50,000 unit WEEKLY PO Last administered on 02/03/18 17: 15; Start 02/03/18 at 15:45 Oxcarbazepine (Trileptal) 150 mg BID PO Last administered on 02/07/18at 19:54; Start 02/04/18 at 21:00; Stop 02/07/18 at 21:50; Status DC Oxcarbazepine (Trileptal) 150 mg DAILY PO Last administered on 02/09/18 08:34 ; Start 02/08/18 at 09:00 Oxcarbazepine (Trileptal) 300 mg HS PO Last administered on 02/08/18 20:41; Start 02/08/18 at 21:00 Docusate Sodium (Colace) 100 mg BID PO Last administered on 02/09/18 08:34; Start 02/08/18 at 09:00 Active Scripts Active Reported Miralax (Polyethylene Glycol 3350) 17 Gm Powd.pack 17 Gm PO PRN DAILY PRN Zyprexa Zydis (Olanzapine) 5 Mg Tab.rapdis 2.5 Mg PO PRN DAILY PRN Melatonin 3 Mg Tablet 5 Mg PO PRN QHS PRN Clonazepam 0.5 Mg Tablet 0.5 Mg PO PRN BID PRN Levothyroxine Sodium 50 Mcg Tablet 50 Mcg PO DAILYAC Zyprexa (Olanzapine) 2.5 Mg Tablet 2.5 Mg PO QHS Melatonin 3 Mg Tablet 1 Mg PO QHS Amlodipine Besylate 5 Mg Tablet 5 Mg PO DAILY I have reviewed the current psychotropics carefully including drug interactions. Risk benefit ratio favors no change other than as noted in my dictated progress note. Diagnosis: Problems: (1) Bipolar affective disorder, mixed (2) Anxiety disorder (3) Impulse control disorder (4) Mild cognitive disorder YENY BRONSON MD Feb 09, 2018 19:57
[2018-02-09] MEDS: OLANZapine 2.5 MG TABLET PO SCH (20:31)
[2018-02-10] MEDS: LEVOTHYROXINE 50 MCG TABLET PO SCH (05:49)
[2018-02-10 06:04] VITALS: BP 106/61
[2018-02-10] MEDS: OXcarbazepine 150 MG TABLET. PO SCH (09:18)
[2018-02-10] MEDS: DOCUSATE SODIUM 100 MG CAPSULE PO SCH ×2 (09:18→20:37)
[2018-02-10] MEDS: amLODIPine BESYLATE 5 MG TABLET PO SCH (09:18)
[2018-02-10] MEDS: CHOLECALCIFEROL (VITAMIN D3) 50,000 UNIT CAPSULE PO SCH (09:19)
--- NOTE | 2018-02-10 14:06 | PN ---
DATE: 02/08/2018 This is a late entry for 02/08/2018 and covers elements not covered in my initial note. SUBJECTIVE: I met with the patient in the evening. The patient slept 8-1/4 hours previous evening, has been irritable at times, mildly annoyed in the morning, somewhat disorganized cooperative with medication compliant, mostly withdrawn to room, but sat on the patio in day room during the afternoon. REVIEW OF SYSTEMS: No CV, , pulmonary, eye, ENT system symptoms on review. Gait unsteady, with walker. MENTAL STATUS EXAM: Oriented to himself and situation. Speech coherent, abstraction fair, computation impaired, language function intact, attention span short. Mood and affect somewhat withdrawn. No suicidal ideation. LABORATORY DATA: Reviewed. IMPRESSION: Unchanged from initial note. PLAN: He does complain of some constipation. We have started Colace 100 mg b.i.d., increase the Trileptal as a mood stabilizer. YENY BRONSON MD DR: THEO/bryan JOB#: [id number] / [id number]
[2018-02-10 16:00] VITALS: BP 134/81
--- NOTE | 2018-02-10 19:56 | PDOC ---
Exam Note: Maurice Note: Please also refer to the separate dictated note~for this date of service dictated separately.~Patient seen individually. Discussed the patient with Nursing staff reviewed the chart.~Reviewed interim history and current functioning. Reviewed vital signs,~Labs/ Radiology~and current medications noted below. Continue current treatment with the changes noted in the dictated addendum note Assessment: Vital Signs: Vital Signs Date Time Temp Pulse Resp B/P (MAP) Pulse Ox O2 Delivery O2 Flow Rate FiO2 02/10/18 16:00 97.9 69 16 134/81 (98) 98 02/04/18 16:24 Room Air I&O Intake and Output 02/10/18 07:00 Intake Total 1200 ml Balance 1200 ml Intake Oral 1200 ml Current Medications: Meds: Current Medications Acetaminophen (Tylenol) 650 mg PRN Q6HRS PRN PO PAIN / TEMP; Start 02/03/18 at 00:45 Al Hydroxide/Mg Hydroxide (Mylanta Plus Xs) 15 ml PRN AFTMEALHC PRN PO DYSPEPSIA; Start 02/03/18 at 00:45 Magnesium Hydroxide (Milk Of Magnesia) 2,400 mg PRN QHS PRN PO CONSTIPATION; Start 02/03/18 at 00:45 Clonazepam (KlonoPIN) 0.5 mg PRN BID PRN PO ANXIETY / AGITATION; Start at 01:00; Stop 02/05/18 at 10:58; Status DC Olanzapine (ZyPREXA ZYDIS) 2.5 mg PRN DAILY PRN PO ANXIETY / AGITATION; Start 02/03/18 at 01:00 Amlodipine Besylate (Norvasc) 5 mg DAILY PO Last administered on 02/10/18at 09: 18; Start 02/03/18 at 09:00 Levothyroxine Sodium (Synthroid) 50 mcg DAILY07 PO Last administered on at 05:49; Start 02/03/18 at 07:00 Melatonin 3 mg PRN QHS PRN PO INSOMNIA Last administered on 02/08/18at 20:44; Start 02/03/18 at 01:15 Non-Formulary Medication (Melatonin ) 5 mg PRN QHS PRN PO INSOMNIA; Start 02/03 at 01:00; Status UNV Olanzapine (ZyPREXA) 2.5 mg QHS PO Last administered on 02/09/18 20:31; Start 02/03/18 at 21:00 Polyethylene Glycol (miraLAX) 17 gm PRN DAILY PRN PO CONSTIPATION; Start at 09:00 Vitamin D (Vitamin D3) 50,000 unit WEEKLY PO Last administered on 02/10/18 09: 19; Start 02/03/18 at 15:45 Oxcarbazepine (Trileptal) 150 mg BID PO Last administered on 02/07/18at 19:54; Start 02/04/18 at 21:00; Stop 02/07/18 at 21:50; Status DC Oxcarbazepine (Trileptal) 150 mg DAILY PO Last administered on 02/10/18 09:18 ; Start 02/08/18 at 09:00 Oxcarbazepine (Trileptal) 300 mg HS PO Last administered on 02/09/18 20:31; Start 02/08/18 at 21:00 Docusate Sodium (Colace) 100 mg BID PO Last administered on 02/10/18 09:18; Start 02/08/18 at 09:00 Active Scripts Active Reported Miralax (Polyethylene Glycol 3350) 17 Gm Powd.pack 17 Gm PO PRN DAILY PRN Zyprexa Zydis (Olanzapine) 5 Mg Tab.rapdis 2.5 Mg PO PRN DAILY PRN Melatonin 3 Mg Tablet 5 Mg PO PRN QHS PRN Clonazepam 0.5 Mg Tablet 0.5 Mg PO PRN BID PRN Levothyroxine Sodium 50 Mcg Tablet 50 Mcg PO DAILYAC Zyprexa (Olanzapine) 2.5 Mg Tablet 2.5 Mg PO QHS Melatonin 3 Mg Tablet 1 Mg PO QHS Amlodipine Besylate 5 Mg Tablet 5 Mg PO DAILY I have reviewed the current psychotropics carefully including drug interactions. Risk benefit ratio favors no change other than as noted in my dictated progress note. Diagnosis: Problems: (1) Bipolar affective disorder, mixed (2) Anxiety disorder (3) Impulse control disorder (4) Mild cognitive disorder YENY BRONSON MD Feb 10, 2018 19:56
[2018-02-10] MEDS: OLANZapine 2.5 MG TABLET PO SCH (20:37)
[2018-02-11 05:45] VITALS: BP 104/52
[2018-02-11] MEDS: LEVOTHYROXINE 50 MCG TABLET PO SCH (06:20)
[2018-02-11 09:14] VITALS: BP 113/72
[2018-02-11] MEDS: DOCUSATE SODIUM 100 MG CAPSULE PO SCH ×2 (09:15→20:36)
[2018-02-11] MEDS: OXcarbazepine 150 MG TABLET. PO SCH (09:15)
[2018-02-11] MEDS: amLODIPine BESYLATE 5 MG TABLET PO SCH (09:16)
--- NOTE | 2018-02-11 11:08 | PN ---
DATE: 02/09/2018 This is a late entry for 02/09/2018 and covers elements not covered in my initial note. SUBJECTIVE: I met with the patient in the evening. The patient slept 5-3/4 hours previous evening, has denied suicidal ideation per nursing report and also when I questioned him directly individually. REVIEW OF SYSTEMS: Ambulation impaired with walker. No CV, , pulmonary, eye system symptoms on review. MENTAL STATUS EXAM: Oriented to himself and situation. Speech coherent, abstraction fair, computation impaired, language function intact, attention span short. Mood and affect somewhat anxious, labile. Reviewed his history at length. states the patient did very well on Seroquel initially, but only when his dosage was increased to 100 mg a day, he seemed to have some dizziness and symptoms of postural hypotension and then had a fall. MENTAL STATUS EXAM: Oriented to himself and situation. Speech coherent, rapid at times, less pressured, very pleasant, verbal. Abstraction fair, computation impaired, language function intact, attention span short. Mood and affect showing some improved lability. LABORATORY DATA: Reviewed. IMPRESSION: Bipolar 1 disorder, mixed with psychotic features, in partial remission; anxiety disorder, unspecified. PLAN: No change from a psychiatric standpoint, continue Trileptal as a mood stabilizer, Zyprexa p.r.n., melatonin p.r.n. YENY BRONSON MD DR: THEO/bryan JOB#: [id number] / [id number]
[2018-02-11 15:55] VITALS: BP 137/88
[2018-02-11] MEDS: OLANZapine 2.5 MG TABLET PO SCH (20:36)
--- NOTE | 2018-02-11 20:55 | PDOC ---
Exam Note: Maurice Note: Please also refer to the separate dictated note~for this date of service dictated separately.~Patient seen individually. Discussed the patient with Nursing staff reviewed the chart.~Reviewed interim history and current functioning. Reviewed vital signs,~Labs/ Radiology~and current medications noted below. Continue current treatment with the changes noted in the dictated addendum note Assessment: Vital Signs: Vital Signs Date Time Temp Pulse Resp B/P (MAP) Pulse Ox O2 Delivery O2 Flow Rate FiO2 02/11/18 15:55 97.3 82 18 137/88 (104) 96 I&O Intake and Output 02/11/18 07:00 Intake Total 840 ml Balance 840 ml Intake Oral 840 ml Current Medications: Meds: Current Medications Acetaminophen (Tylenol) 650 mg PRN Q6HRS PRN PO PAIN / TEMP; Start 02/03/18 at 00:45 Al Hydroxide/Mg Hydroxide (Mylanta Plus Xs) 15 ml PRN AFTMEALHC PRN PO DYSPEPSIA; Start 02/03/18 at 00:45 Magnesium Hydroxide (Milk Of Magnesia) 2,400 mg PRN QHS PRN PO CONSTIPATION; Start 02/03/18 at 00:45 Clonazepam (KlonoPIN) 0.5 mg PRN BID PRN PO ANXIETY / AGITATION; Start at 01:00; Stop 02/05/18 at 10:58; Status DC Olanzapine (ZyPREXA ZYDIS) 2.5 mg PRN DAILY PRN PO ANXIETY / AGITATION; Start 02/03/18 at 01:00 Amlodipine Besylate (Norvasc) 5 mg DAILY PO Last administered on 02/11/18at 09:16 ; Start 02/03/18 at 09:00 Levothyroxine Sodium (Synthroid) 50 mcg DAILY07 PO Last administered on at 06:20; Start 02/03/18 at 07:00 Melatonin 3 mg PRN QHS PRN PO INSOMNIA Last administered on 02/08/18at 20:44; Start 02/03/18 at 01:15 Non-Formulary Medication (Melatonin ) 5 mg PRN QHS PRN PO INSOMNIA; Start 02/03 at 01:00; Status UNV Olanzapine (ZyPREXA) 2.5 mg QHS PO Last administered on 02/11/18at 20:36; Start 02/03/18 at 21:00 Polyethylene Glycol (miraLAX) 17 gm PRN DAILY PRN PO CONSTIPATION; Start at 09:00 Vitamin D (Vitamin D3) 50,000 unit WEEKLY PO Last administered on 02/10/18at 09: 19; Start 02/03/18 at 15:45 Oxcarbazepine (Trileptal) 150 mg BID PO Last administered on 02/07/18at 19:54; Start 02/04/18 at 21:00; Stop 02/07/18 at 21:50; Status DC Oxcarbazepine (Trileptal) 150 mg DAILY PO Last administered on 02/11/18at 09:15; Start 02/08/18 at 09:00 Oxcarbazepine (Trileptal) 300 mg HS PO Last administered on 02/11/18at 20:36; Start 02/08/18 at 21:00 Docusate Sodium (Colace) 100 mg BID PO Last administered on 02/11/18at 20:36; Start 02/08/18 at 09:00 Active Scripts Active Reported Miralax (Polyethylene Glycol 3350) 17 Gm Powd.pack 17 Gm PO PRN DAILY PRN Zyprexa Zydis (Olanzapine) 5 Mg Tab.rapdis 2.5 Mg PO PRN DAILY PRN Melatonin 3 Mg Tablet 5 Mg PO PRN QHS PRN Clonazepam 0.5 Mg Tablet 0.5 Mg PO PRN BID PRN Levothyroxine Sodium 50 Mcg Tablet 50 Mcg PO DAILYAC Zyprexa (Olanzapine) 2.5 Mg Tablet 2.5 Mg PO QHS Melatonin 3 Mg Tablet 1 Mg PO QHS Amlodipine Besylate 5 Mg Tablet 5 Mg PO DAILY I have reviewed the current psychotropics carefully including drug interactions. Risk benefit ratio favors no change other than as noted in my dictated progress note. Diagnosis: Problems: (1) Bipolar affective disorder, mixed (2) Anxiety disorder (3) Impulse control disorder (4) Mild cognitive disorder YENY BRONSON MD Feb 11, 2018 20:55
--- NOTE | 2018-02-12 04:55 | PN ---
DATE: 02/10/2018 PSYCHIATRIC PROGRESS NOTE This is a late entry, 02/10, covers elements not covered in my initial note. SUBJECTIVE: I met with the patient in the evening. The patient slept 7-1/2 hours previous evening. He remains somewhat withdrawn. Denies suicidal ideation. He states he is getting slower as he is getting old, unsure about his ability, somewhat dysphoric. REVIEW OF SYSTEMS: No CV, , pulmonary, eye, ENT system symptoms on review. MENTAL STATUS EXAM: Reasonably oriented. Speech coherent, pleasant, verbal. Denies active suicidal ideation, able to look forward to positives in his life with his and she is very supportive of him. clear psychotic symptoms. Intellect average. Insight good. Judgment intact. IMPRESSION: Bipolar 1 disorder, depressed, in partial remission; anxiety disorder, unspecified. PLAN: Continue psychotropics from initial note along with Trileptal as a mood stabilizer at 1:50 a.m. 300 at bedtime. MAN Michael BRONSON MD DR: THEO/bryan JOB#: [id number] / [id number]
[2018-02-12] MEDS: LEVOTHYROXINE 50 MCG TABLET PO SCH (05:39)
[2018-02-12 05:46] VITALS: BP 105/58
--- NOTE | 2018-02-12 06:56 | EKG ---
[facility] [address] [place] [address] Test Date: 2018-02-03 Test Time: 16:34:39 Pat Name: RADHA ROBB Department: Room: [address] [place] [address] Gender: M Paint Supervisor: : 1940 Requested By: YENY BRONSON Order Number: [id number] Reading MD: Measurements Intervals [place] Rate: P: [place]: QRS: QRSD: T: QT: QTc: Interpretive Statements
[2018-02-12 07:04] LABS: BASO % 1 % (0-3); EOS # 0.1 x10^3/uL (0.0-0.7); EOS % 3 % (0-3); HEMATOCRIT 43.6 % (39.0-53.0); HEMOGLOBIN 15.1 g/dL (13.0-17.5); LYMPH # 1.3 x10^3/uL (1.0-4.8); LYMPH % 28 % (24-48); MEAN CORPUSCULAR HEMOGLOBIN 34 pg (25-35); MEAN CORPUSCULAR HGB CONC 35 g/dL (31-37); MEAN CORPUSCULAR VOLUME 96 fL (79-100); MONO # 0.6 x10^3/uL (0.0-1.1); MONO % 13 % (0-9); NEUT # 2.6 x10^3uL (1.8-7.7); NEUT % 56 % (31-73); PLATELET COUNT 163 x10^3/uL (140-400); RED BLOOD COUNT 4.52 x10^6/uL (4.30-5.70); RED CELL DISTRIBUTION WIDTH 13.4 % (11.5-14.5); WHITE BLOOD COUNT 4.7 x10^3/uL (4.0-11.0)
[2018-02-12 07:09] LABS: ALBUMIN 3.1 g/dL (3.4-5.0); ALBUMIN/GLOBULIN RATIO 0.9 (1.0-1.7); CALCIUM 8.9 mg/dL (8.5-10.1); CREATININE 1.2 mg/dL (0.7-1.3); GFR 58.4; TOTAL BILIRUBIN 0.5 mg/dL (0.2-1.0); TOTAL PROTEIN 6.6 g/dL (6.4-8.2)
[2018-02-12] MEDS: amLODIPine BESYLATE 5 MG TABLET PO SCH (08:21)
[2018-02-12] MEDS: DOCUSATE SODIUM 100 MG CAPSULE PO SCH ×2 (08:22→19:27)
[2018-02-12] MEDS: OXcarbazepine 150 MG TABLET. PO SCH (08:22)
[2018-02-12 15:57] VITALS: BP 110/74
[2018-02-12] MEDS: OLANZapine 2.5 MG TABLET PO SCH (19:27)
[2018-02-12] MEDS: MELATONIN 3 MG TABLET PO PRN (19:29)
--- NOTE | 2018-02-12 20:56 | PDOC ---
Exam Note: Maurice Note: Please also refer to the separate dictated note~for this date of service dictated separately.~Patient seen individually. Discussed the patient with Nursing staff reviewed the chart.~Reviewed interim history and current functioning. Reviewed vital signs,~Labs/ Radiology~and current medications noted below. Continue current treatment with the changes noted in the dictated addendum note Assessment: Vital Signs: Vital Signs Date Time Temp Pulse Resp B/P (MAP) Pulse Ox O2 Delivery O2 Flow Rate FiO2 02/12/18 15:57 98.3 73 20 110/74 (86) 95 I&O Intake and Output 02/12/18 07:00 Intake Total 1080 ml Balance 1080 ml Intake Oral 1080 ml Labs: Laboratory Tests Test 02/12/18 06:47 White Blood Count 4.7 x10^3/uL (4.0-11.0) Red Blood Count 4.52 x10^6/uL (4.30-5.70) Hemoglobin 15.1 g/dL (13.0-17.5) Hematocrit 43.6 % (39.0-53.0) Mean Corpuscular Volume 96 fL (79-100) Mean Corpuscular Hemoglobin 34 pg (25-35) Mean Corpuscular Hemoglobin Concent 35 g/dL (31-37) Red Cell Distribution Width 13.4 % (11.5-14.5) Platelet Count 163 x10^3/uL (140-400) Neutrophils (%) (Auto) 56 % (31-73) Lymphocytes (%) (Auto) 28 % (24-48) Monocytes (%) (Auto) 13 % (0-9) H Eosinophils (%) (Auto) 3 % (0-3) Basophils (%) (Auto) 1 % (0-3) Neutrophils # (Auto) 2.6 x10^3uL (1.8-7.7) Lymphocytes # (Auto) 1.3 x10^3/uL (1.0-4.8) Monocytes # (Auto) 0.6 x10^3/uL (0.0-1.1) Eosinophils # (Auto) 0.1 x10^3/uL (0.0-0.7) Basophils # (Auto) 0.0 x10^3/uL (0.0-0.2) Sodium Level 138 mmol/L (136-145) Potassium Level 4.0 mmol/L (3.5-5.1) Chloride Level 104 mmol/L (98-107) Carbon Dioxide Level 29 mmol/L (21-32) Anion Gap 5 (6-14) L Blood Urea Nitrogen 18 mg/dL (8-26) Creatinine 1.2 mg/dL (0.7-1.3) Estimated GFR (Cockcroft-Gault) 58.4 BUN/Creatinine Ratio 15 (6-20) Glucose Level 84 mg/dL (70-99) Calcium Level 8.9 mg/dL (8.5-10.1) Total Bilirubin 0.5 mg/dL (0.2-1.0) Aspartate Amino Transferase (AST) 21 U/L (15-37) Alanine Aminotransferase (ALT) 24 U/L (16-63) Alkaline Phosphatase 73 U/L (46-116) Total Protein 6.6 g/dL (6.4-8.2) Albumin 3.1 g/dL (3.4-5.0) L Albumin/Globulin Ratio 0.9 (1.0-1.7) L Current Medications: Meds: Current Medications Acetaminophen (Tylenol) 650 mg PRN Q6HRS PRN PO PAIN / TEMP; Start 02/03/18 at 00:45 Al Hydroxide/Mg Hydroxide (Mylanta Plus Xs) 15 ml PRN AFTMEALHC PRN PO DYSPEPSIA; Start 02/03/18 at 00:45 Magnesium Hydroxide (Milk Of Magnesia) 2,400 mg PRN QHS PRN PO CONSTIPATION; Start 02/03/18 at 00:45 Clonazepam (KlonoPIN) 0.5 mg PRN BID PRN PO ANXIETY / AGITATION; Start at 01:00; Stop 02/05/18 at 10:58; Status DC Olanzapine (ZyPREXA ZYDIS) 2.5 mg PRN DAILY PRN PO ANXIETY / AGITATION; Start 02/03/18 at 01:00 Amlodipine Besylate (Norvasc) 5 mg DAILY PO Last administered on 02/11/18at 09:16 ; Start 02/03/18 at 09:00 Levothyroxine Sodium (Synthroid) 50 mcg DAILY07 PO Last administered on at 05:39; Start 02/03/18 at 07:00 Melatonin 3 mg PRN QHS PRN PO INSOMNIA Last administered on 02/12/18 19:29; Start 02/03/18 at 01:15 Non-Formulary Medication (Melatonin ) 5 mg PRN QHS PRN PO INSOMNIA; Start 02/03 at 01:00; Status UNV Olanzapine (ZyPREXA) 2.5 mg QHS PO Last administered on 02/12/18 19:27; Start 02/03/18 at 21:00 Polyethylene Glycol (miraLAX) 17 gm PRN DAILY PRN PO CONSTIPATION; Start at 09:00 Vitamin D (Vitamin D3) 50,000 unit WEEKLY PO Last administered on 02/10/18at 09: 19; Start 02/03/18 at 15:45 Oxcarbazepine (Trileptal) 150 mg BID PO Last administered on 02/07/18at 19:54; Start 02/04/18 at 21:00; Stop 02/07/18 at 21:50; Status DC Oxcarbazepine (Trileptal) 150 mg DAILY PO Last administered on 02/12/18 08:22; Start 02/08/18 at 09:00 Oxcarbazepine (Trileptal) 300 mg HS PO Last administered on 02/12/18 19:27; Start 02/08/18 at 21:00 Docusate Sodium (Colace) 100 mg BID PO Last administered on 02/12/18 19:27; Start 02/08/18 at 09:00 Active Scripts Active Reported Miralax (Polyethylene Glycol 3350) 17 Gm Powd.pack 17 Gm PO PRN DAILY PRN Zyprexa Zydis (Olanzapine) 5 Mg Tab.rapdis 2.5 Mg PO PRN DAILY PRN Melatonin 3 Mg Tablet 5 Mg PO PRN QHS PRN Clonazepam 0.5 Mg Tablet 0.5 Mg PO PRN BID PRN Levothyroxine Sodium 50 Mcg Tablet 50 Mcg PO DAILYAC Zyprexa (Olanzapine) 2.5 Mg Tablet 2.5 Mg PO QHS Melatonin 3 Mg Tablet 1 Mg PO QHS Amlodipine Besylate 5 Mg Tablet 5 Mg PO DAILY I have reviewed the current psychotropics carefully including drug interactions. Risk benefit ratio favors no change other than as noted in my dictated progress note. Diagnosis: Problems: (1) Bipolar affective disorder, mixed (2) Anxiety disorder (3) Impulse control disorder (4) Mild cognitive disorder YENY BRONSON MD Feb 12, 2018 20:56
[2018-02-13] MEDS: LEVOTHYROXINE 50 MCG TABLET PO SCH (05:16)
[2018-02-13 05:59] VITALS: BP 130/85
[2018-02-13] MEDS: OXcarbazepine 150 MG TABLET. PO SCH (08:33)
[2018-02-13] MEDS: DOCUSATE SODIUM 100 MG CAPSULE PO SCH ×2 (08:34→19:50)
[2018-02-13] MEDS: amLODIPine BESYLATE 5 MG TABLET PO SCH (08:34)
[2018-02-13 16:03] VITALS: BP 139/80
[2018-02-13] MEDS: OLANZapine 2.5 MG TABLET PO SCH (19:50)
--- NOTE | 2018-02-13 20:48 | PDOC ---
Exam Note: Mauriec Note: Please also refer to the separate dictated note~for this date of service dictated separately.~Patient seen individually. Discussed the patient with Nursing staff reviewed the chart.~Reviewed interim history and current functioning. Reviewed vital signs,~Labs/ Radiology~and current medications noted below. Continue current treatment with the changes noted in the dictated addendum note Assessment: Vital Signs: Vital Signs Date Time Temp Pulse Resp B/P (MAP) Pulse Ox O2 Delivery O2 Flow Rate FiO2 02/13/18 16:03 97.9 65 18 139/80 (99) 98 I&O Intake and Output 02/13/18 07:00 Intake Total 1560 ml Balance 1560 ml Intake Oral 1560 ml # Voids 1 Current Medications: Meds: Current Medications Acetaminophen (Tylenol) 650 mg PRN Q6HRS PRN PO PAIN / TEMP; Start 02/03/18 at 00:45 Al Hydroxide/Mg Hydroxide (Mylanta Plus Xs) 15 ml PRN AFTMEALHC PRN PO DYSPEPSIA; Start 02/03/18 at 00:45 Magnesium Hydroxide (Milk Of Magnesia) 2,400 mg PRN QHS PRN PO CONSTIPATION; Start 02/03/18 at 00:45 Clonazepam (KlonoPIN) 0.5 mg PRN BID PRN PO ANXIETY / AGITATION; Start at 01:00; Stop 02/05/18 at 10:58; Status DC Olanzapine (ZyPREXA ZYDIS) 2.5 mg PRN DAILY PRN PO ANXIETY / AGITATION; Start 02/03/18 at 01:00 Amlodipine Besylate (Norvasc) 5 mg DAILY PO Last administered on 02/13/18at 08:34 ; Start 02/03/18 at 09:00 Levothyroxine Sodium (Synthroid) 50 mcg DAILY07 PO Last administered on at 05:16; Start 02/03/18 at 07:00 Melatonin 3 mg PRN QHS PRN PO INSOMNIA Last administered on 02/12/18at 19:29; Start 02/03/18 at 01:15 Non-Formulary Medication (Melatonin ) 5 mg PRN QHS PRN PO INSOMNIA; Start 02/03 at 01:00; Status UNV Olanzapine (ZyPREXA) 2.5 mg QHS PO Last administered on 02/13/18at 19:50; Start 02/03/18 at 21:00 Polyethylene Glycol (miraLAX) 17 gm PRN DAILY PRN PO CONSTIPATION; Start at 09:00 Vitamin D (Vitamin D3) 50,000 unit WEEKLY PO Last administered on 02/10/18at 09: 19; Start 02/03/18 at 15:45 Oxcarbazepine (Trileptal) 150 mg BID PO Last administered on 02/07/18at 19:54; Start 02/04/18 at 21:00; Stop 02/07/18 at 21:50; Status DC Oxcarbazepine (Trileptal) 150 mg DAILY PO Last administered on 02/13/18 08:33; Start 02/08/18 at 09:00 Oxcarbazepine (Trileptal) 300 mg HS PO Last administered on 02/13/18 19:50; Start 02/08/18 at 21:00 Docusate Sodium (Colace) 100 mg BID PO Last administered on 02/13/18 19:50; Start 02/08/18 at 09:00 Bupropion HCl (Wellbutrin Xl) 150 mg DAILY PO ; Start 02/14/18 at 09:00 Active Scripts Active Reported Miralax (Polyethylene Glycol 3350) 17 Gm Powd.pack 17 Gm PO PRN DAILY PRN Zyprexa Zydis (Olanzapine) 5 Mg Tab.rapdis 2.5 Mg PO PRN DAILY PRN Melatonin 3 Mg Tablet 5 Mg PO PRN QHS PRN Clonazepam 0.5 Mg Tablet 0.5 Mg PO PRN BID PRN Levothyroxine Sodium 50 Mcg Tablet 50 Mcg PO DAILYAC Zyprexa (Olanzapine) 2.5 Mg Tablet 2.5 Mg PO QHS Melatonin 3 Mg Tablet 1 Mg PO QHS Amlodipine Besylate 5 Mg Tablet 5 Mg PO DAILY I have reviewed the current psychotropics carefully including drug interactions. Risk benefit ratio favors no change other than as noted in my dictated progress note. Diagnosis: Problems: (1) Bipolar affective disorder, mixed (2) Anxiety disorder (3) Impulse control disorder (4) Mild cognitive disorder YENY BRONSON MD Feb 13, 2018 20:48
--- NOTE | 2018-02-14 00:23 | PN ---
DATE: 02/11/2018 This late entry, 02/11/2018, covers elements not covered in my initial note. SUBJECTIVE: I met with the patient in the evening. The patient slept 7-1/2 hours previous evening. Denies active suicidal ideation, very verbal, open, forthcoming as I met with him. REVIEW OF SYSTEMS: No CV, , pulmonary, eye system symptoms on review. Complains of some constipation. We started Colace. MENTAL STATUS EXAM: Reasonably oriented. Speech coherent, abstraction fair, computation impaired, language function intact, attention span short. Mood and affect showing improvement. LABORATORY DATA: Reviewed. IMPRESSION: Bipolar 1 disorder, mixed versus depressed; anxiety disorder, unspecified. PLAN: Continue psychotropics from initial note. Trileptal 150 a.m. and 300 at bedtime as a mood stabilizer, Zyprexa p.r.n., melatonin p.r.n. MAN Michael BRONSON MD DR: THEO/bryan JOB#: [id number] / [id number]
--- NOTE | 2018-02-14 01:30 | PN ---
DATE: 02/12/2018 PSYCHIATRIC PROGRESS NOTE This late entry 02/12/2018 covers elements not covered in my initial note 02/12/2018. SUBJECTIVE: I met with the patient in the evening, staffed at a treatment team meeting with the entire team in the morning. Overall, the patient remains somewhat withdrawn, continues to complain of having mood swings. REVIEW OF SYSTEMS: No CV, , pulmonary, eye, ENT system symptoms on review. Gait unsteady with walker. MENTAL STATUS EXAM: Oriented to himself and situation. Speech is coherent, abstraction fair, computation impaired, language function intact. Mood and affect somewhat withdrawn at times. No clear psychotic symptoms, suicidal or homicidal ideation. LABORATORY DATA: Reviewed. IMPRESSION: Bipolar 1 disorder, depressed, anxiety disorder, unspecified. PLAN: No change from a psychiatric standpoint. If symptoms of depression persist, may add Wellbutrin. Adjust Trileptal as needed for bipolar symptoms. MAN Michael BRONSON MD DR: THEO/bryan JOB#: [id number] / [id number]
[2018-02-14] MEDS: LEVOTHYROXINE 50 MCG TABLET PO SCH (05:52)
[2018-02-14 06:07] VITALS: BP 142/92
[2018-02-14] MEDS: amLODIPine BESYLATE 5 MG TABLET PO SCH (08:30)
[2018-02-14] MEDS: OXcarbazepine 150 MG TABLET. PO SCH (08:30)
[2018-02-14] MEDS: DOCUSATE SODIUM 100 MG CAPSULE PO SCH ×2 (08:30→20:03)
[2018-02-14] MEDS: buPROPion XL 150 MG TAB.ER.24H PO SCH (08:35)
[2018-02-14 16:18] VITALS: BP 138/82
[2018-02-14] MEDS: OLANZapine 2.5 MG TABLET PO SCH (20:04)
[2018-02-15] MEDS: LEVOTHYROXINE 50 MCG TABLET PO SCH (05:31)
[2018-02-15 05:57] VITALS: BP 134/84
[2018-02-15] MEDS: DOCUSATE SODIUM 100 MG CAPSULE PO SCH ×2 (07:40→20:57)
[2018-02-15] MEDS: buPROPion XL 150 MG TAB.ER.24H PO SCH (07:40)
[2018-02-15] MEDS: amLODIPine BESYLATE 5 MG TABLET PO SCH (07:40)
[2018-02-15] MEDS: OXcarbazepine 150 MG TABLET. PO SCH (07:41)
[2018-02-15 16:32] VITALS: BP 116/74
--- NOTE | 2018-02-15 20:07 | PDOC ---
Exam Note: Maurice Note: Please also refer to the separate dictated note~for this date of service dictated separately.~Patient seen individually. Discussed the patient with Nursing staff reviewed the chart.~Reviewed interim history and current functioning. Reviewed vital signs,~Labs/ Radiology~and current medications noted below. Continue current treatment with the changes noted in the dictated addendum note Assessment: Vital Signs: Vital Signs Date Time Temp Pulse Resp B/P (MAP) Pulse Ox O2 Delivery O2 Flow Rate FiO2 02/15/18 16:32 98.5 77 20 116/74 (88) 95 Room Air I&O Intake and Output 02/15/18 07:00 Intake Total 1440 ml Balance 1440 ml Intake Oral 1440 ml # Voids 1 Current Medications: Meds: Current Medications Acetaminophen (Tylenol) 650 mg PRN Q6HRS PRN PO PAIN / TEMP; Start 02/03/18 at 00:45 Al Hydroxide/Mg Hydroxide (Mylanta Plus Xs) 15 ml PRN AFTMEALHC PRN PO DYSPEPSIA; Start 02/03/18 at 00:45 Magnesium Hydroxide (Milk Of Magnesia) 2,400 mg PRN QHS PRN PO CONSTIPATION; Start 02/03/18 at 00:45 Clonazepam (KlonoPIN) 0.5 mg PRN BID PRN PO ANXIETY / AGITATION; Start at 01:00; Stop 02/05/18 at 10:58; Status DC Olanzapine (ZyPREXA ZYDIS) 2.5 mg PRN DAILY PRN PO ANXIETY / AGITATION; Start 02/03/18 at 01:00 Amlodipine Besylate (Norvasc) 5 mg DAILY PO Last administered on 02/15/18at 07:40 ; Start 02/03/18 at 09:00 Levothyroxine Sodium (Synthroid) 50 mcg DAILY07 PO Last administered on at 05:31; Start 02/03/18 at 07:00 Melatonin 3 mg PRN QHS PRN PO INSOMNIA Last administered on 02/12/18at 19:29; Start 02/03/18 at 01:15 Non-Formulary Medication (Melatonin ) 5 mg PRN QHS PRN PO INSOMNIA; Start 02/03 at 01:00; Status UNV Olanzapine (ZyPREXA) 2.5 mg QHS PO Last administered on 8/4/18at 20:04; Start 02/03/18 at 21:00 Polyethylene Glycol (miraLAX) 17 gm PRN DAILY PRN PO CONSTIPATION; Start at 09:00 Vitamin D (Vitamin D3) 50,000 unit WEEKLY PO Last administered on 02/10/18 09: 19; Start 02/03/18 at 15:45 Oxcarbazepine (Trileptal) 150 mg BID PO Last administered on 02/07/18at 19:54; Start 02/04/18 at 21:00; Stop 02/07/18 at 21:50; Status DC Oxcarbazepine (Trileptal) 150 mg DAILY PO Last administered on 02/15/18 07:41; Start 02/08/18 at 09:00 Oxcarbazepine (Trileptal) 300 mg HS PO Last administered on 02/14/18 20:04; Start 02/08/18 at 21:00 Docusate Sodium (Colace) 100 mg BID PO Last administered on 02/15/18 07:40; Start 02/08/18 at 09:00 Bupropion HCl (Wellbutrin Xl) 150 mg DAILY PO Last administered on 02/15/18 07: 40; Start 02/14/18 at 09:00 Active Scripts Active Reported Miralax (Polyethylene Glycol 3350) 17 Gm Powd.pack 17 Gm PO PRN DAILY PRN Zyprexa Zydis (Olanzapine) 5 Mg Tab.rapdis 2.5 Mg PO PRN DAILY PRN Melatonin 3 Mg Tablet 5 Mg PO PRN QHS PRN Clonazepam 0.5 Mg Tablet 0.5 Mg PO PRN BID PRN Levothyroxine Sodium 50 Mcg Tablet 50 Mcg PO DAILYAC Zyprexa (Olanzapine) 2.5 Mg Tablet 2.5 Mg PO QHS Melatonin 3 Mg Tablet 1 Mg PO QHS Amlodipine Besylate 5 Mg Tablet 5 Mg PO DAILY I have reviewed the current psychotropics carefully including drug interactions. Risk benefit ratio favors no change other than as noted in my dictated progress note. Diagnosis: Problems: (1) Bipolar affective disorder, mixed (2) Anxiety disorder (3) Impulse control disorder (4) Mild cognitive disorder YENY BRONSON MD Feb 15, 2018 20:07
--- NOTE | 2018-02-15 20:07 | PDOC ---
Exam Note: Maurice Note: Late entry for date of service February. Please also refer to the separate dictated note~for this date of service dictated separately.~Patient seen individually. Discussed the patient with Nursing staff reviewed the chart.~ Reviewed interim history and current functioning. Reviewed vital signs,~Labs/ Radiology~and current medications noted below. Continue current treatment with the changes noted in the dictated addendum note Assessment: Vital Signs: VS - Last 72 Hours, by Label Date Time Temp Pulse Resp B/P (MAP) Pulse Ox O2 Delivery O2 Flow Rate FiO2 02/15/18 16:32 98.5 77 20 116/74 (88) 95 Room Air 02/15/18 07:40 68 134/84 02/15/18 05:57 97.8 68 16 134/84 (101) 98 02/14/18 16:18 97.7 72 19 138/82 (100) 97 02/14/18 08:30 69 142/92 02/14/18 06:07 97.5 69 16 142/92 (109) 95 Room Air 02/13/18 16:03 97.9 65 18 139/80 (99) 98 02/13/18 08:34 63 130/85 02/13/18 05:59 97.1 63 16 130/85 (100) 97 Vital Signs Date Time Temp Pulse Resp B/P (MAP) Pulse Ox O2 Delivery O2 Flow Rate FiO2 02/15/18 16:32 98.5 77 20 116/74 (88) 95 Room Air I&O Intake and Output 02/15/18 07:00 Intake Total 1440 ml Balance 1440 ml Intake Oral 1440 ml # Voids 1 Current Medications: Meds: Current Medications Acetaminophen (Tylenol) 650 mg PRN Q6HRS PRN PO PAIN / TEMP; Start 02/03/18 at 00:45 Al Hydroxide/Mg Hydroxide (Mylanta Plus Xs) 15 ml PRN AFTMEALHC PRN PO DYSPEPSIA; Start 02/03/18 at 00:45 Magnesium Hydroxide (Milk Of Magnesia) 2,400 mg PRN QHS PRN PO CONSTIPATION; Start 02/03/18 at 00:45 Clonazepam (KlonoPIN) 0.5 mg PRN BID PRN PO ANXIETY / AGITATION; Start at 01:00; Stop 02/05/18 at 10:58; Status DC Olanzapine (ZyPREXA ZYDIS) 2.5 mg PRN DAILY PRN PO ANXIETY / AGITATION; Start 02/03/18 at 01:00 Amlodipine Besylate (Norvasc) 5 mg DAILY PO Last administered on 02/15/18 07:40 ; Start 02/03/18 at 09:00 Levothyroxine Sodium (Synthroid) 50 mcg DAILY07 PO Last administered on 05:31; Start 02/03/18 at 07:00 Melatonin 3 mg PRN QHS PRN PO INSOMNIA Last administered on 02/12/18 19:29; Start 02/03/18 at 01:15 Non-Formulary Medication (Melatonin ) 5 mg PRN QHS PRN PO INSOMNIA; Start 02/03 at 01:00; Status UNV Olanzapine (ZyPREXA) 2.5 mg QHS PO Last administered on 02/14/18 20:04; Start 02/03/18 at 21:00 Polyethylene Glycol (miraLAX) 17 gm PRN DAILY PRN PO CONSTIPATION; Start at 09:00 Vitamin D (Vitamin D3) 50,000 unit WEEKLY PO Last administered on 02/10/18 09: 19; Start 02/03/18 at 15:45 Oxcarbazepine (Trileptal) 150 mg BID PO Last administered on 02/07/18 19:54; Start 02/04/18 at 21:00; Stop 02/07/18 at 21:50; Status DC Oxcarbazepine (Trileptal) 150 mg DAILY PO Last administered on 02/15/18 07:41; Start 02/08/18 at 09:00 Oxcarbazepine (Trileptal) 300 mg HS PO Last administered on 02/14/18 20:04; Start 02/08/18 at 21:00 Docusate Sodium (Colace) 100 mg BID PO Last administered on 02/15/18 07:40; Start 02/08/18 at 09:00 Bupropion HCl (Wellbutrin Xl) 150 mg DAILY PO Last administered on 02/15/18 07: 40; Start 02/14/18 at 09:00 Active Scripts Active Reported Miralax (Polyethylene Glycol 3350) 17 Gm Powd.pack 17 Gm PO PRN DAILY PRN Zyprexa Zydis (Olanzapine) 5 Mg Tab.rapdis 2.5 Mg PO PRN DAILY PRN Melatonin 3 Mg Tablet 5 Mg PO PRN QHS PRN Clonazepam 0.5 Mg Tablet 0.5 Mg PO PRN BID PRN Levothyroxine Sodium 50 Mcg Tablet 50 Mcg PO DAILYAC Zyprexa (Olanzapine) 2.5 Mg Tablet 2.5 Mg PO QHS Melatonin 3 Mg Tablet 1 Mg PO QHS Amlodipine Besylate 5 Mg Tablet 5 Mg PO DAILY I have reviewed the current psychotropics carefully including drug interactions. Risk benefit ratio favors no change other than as noted in my dictated progress note. Diagnosis: Problems: (1) Bipolar affective disorder, mixed (2) Anxiety disorder (3) Impulse control disorder (4) Mild cognitive disorder YENY BRONSON MD Feb 15, 2018 20:07
[2018-02-15] MEDS: OLANZapine 2.5 MG TABLET PO SCH (20:57)
--- NOTE | 2018-02-15 23:25 | PN ---
DATE: 02/13/2018 This is a late entry, 02/13/2018, covers the elements not covered in my initial note. SUBJECTIVE: I met with the patient in the evening. The patient slept 7-1/4 hours the previous evening, remains somewhat depressed, withdrawn. REVIEW OF SYSTEMS: No CV, , pulmonary, eye, ENT system symptoms on review. Reliability poor. MENTAL STATUS EXAM: Oriented to himself and situation. Speech coherent, abstraction fair, computation impaired, language function intact, attention span short. Mood and affect still somewhat depressed. No suicidal or homicidal ideation. LABORATORY DATA: Reviewed. IMPRESSION: Unchanged from initial note. PLAN: Start Wellbutrin-XL 150 mg a day. Continue rest unchanged. MAN Michael BRONSON MD DR: THEO/bryan JOB#: [id number] / [id number]
[2018-02-16] MEDS: LEVOTHYROXINE 50 MCG TABLET PO SCH (05:07)
[2018-02-16 06:38] VITALS: BP 123/62
[2018-02-16] MEDS: OXcarbazepine 150 MG TABLET. PO SCH (08:04)
[2018-02-16] MEDS: buPROPion XL 150 MG TAB.ER.24H PO SCH (08:04)
[2018-02-16] MEDS: amLODIPine BESYLATE 5 MG TABLET PO SCH (08:05)
[2018-02-16] MEDS: DOCUSATE SODIUM 100 MG CAPSULE PO SCH ×2 (08:05→19:24)
[2018-02-16 16:16] VITALS: BP 124/78
[2018-02-16] MEDS: OLANZapine 2.5 MG TABLET PO SCH (19:25)
--- NOTE | 2018-02-16 21:11 | PDOC ---
Exam Note: Maurice Note: Please also refer to the separate dictated note~for this date of service dictated separately.~Patient seen individually. Discussed the patient with Nursing staff reviewed the chart.~Reviewed interim history and current functioning. Reviewed vital signs,~Labs/ Radiology~and current medications noted below. Continue current treatment with the changes noted in the dictated addendum note Assessment: Vital Signs: Vital Signs Date Time Temp Pulse Resp B/P (MAP) Pulse Ox O2 Delivery O2 Flow Rate FiO2 02/16/18 16:16 97.6 65 19 124/78 (93) 97 02/16/18 06:38 Room Air I&O Intake and Output 02/16/18 07:00 Intake Total 1440 ml Balance 1440 ml Intake Oral 1440 ml # Voids 1 Current Medications: Meds: Current Medications Acetaminophen (Tylenol) 650 mg PRN Q6HRS PRN PO PAIN / TEMP; Start 02/03/18 at 00:45 Al Hydroxide/Mg Hydroxide (Mylanta Plus Xs) 15 ml PRN AFTMEALHC PRN PO DYSPEPSIA; Start 02/03/18 at 00:45 Magnesium Hydroxide (Milk Of Magnesia) 2,400 mg PRN QHS PRN PO CONSTIPATION; Start 02/03/18 at 00:45 Clonazepam (KlonoPIN) 0.5 mg PRN BID PRN PO ANXIETY / AGITATION; Start at 01:00; Stop 02/05/18 at 10:58; Status DC Olanzapine (ZyPREXA ZYDIS) 2.5 mg PRN DAILY PRN PO ANXIETY / AGITATION; Start 02/03/18 at 01:00 Amlodipine Besylate (Norvasc) 5 mg DAILY PO Last administered on 02/16/18at 08:05 ; Start 02/03/18 at 09:00 Levothyroxine Sodium (Synthroid) 50 mcg DAILY07 PO Last administered on at 05:07; Start 02/03/18 at 07:00 Melatonin 3 mg PRN QHS PRN PO INSOMNIA Last administered on 02/12/18at 19:29; Start 02/03/18 at 01:15 Non-Formulary Medication (Melatonin ) 5 mg PRN QHS PRN PO INSOMNIA; Start 02/03 at 01:00; Status UNV Olanzapine (ZyPREXA) 2.5 mg QHS PO Last administered on 02/16/18 19:25; Start 02/03/18 at 21:00 Polyethylene Glycol (miraLAX) 17 gm PRN DAILY PRN PO CONSTIPATION; Start at 09:00 Vitamin D (Vitamin D3) 50,000 unit WEEKLY PO Last administered on 02/10/18 09: 19; Start 02/03/18 at 15:45 Oxcarbazepine (Trileptal) 150 mg BID PO Last administered on 02/07/18 19:54; Start 02/04/18 at 21:00; Stop 02/07/18 at 21:50; Status DC Oxcarbazepine (Trileptal) 150 mg DAILY PO Last administered on 02/16/18 08:04; Start 02/08/18 at 09:00 Oxcarbazepine (Trileptal) 300 mg HS PO Last administered on 02/16/18 19:25; Start 02/08/18 at 21:00 Docusate Sodium (Colace) 100 mg BID PO Last administered on 02/16/18 19:24; Start 02/08/18 at 09:00 Bupropion HCl (Wellbutrin Xl) 150 mg DAILY PO Last administered on 02/16/18 08: 04; Start 02/14/18 at 09:00 Active Scripts Active Reported Miralax (Polyethylene Glycol 3350) 17 Gm Powd.pack 17 Gm PO PRN DAILY PRN Zyprexa Zydis (Olanzapine) 5 Mg Tab.rapdis 2.5 Mg PO PRN DAILY PRN Melatonin 3 Mg Tablet 5 Mg PO PRN QHS PRN Clonazepam 0.5 Mg Tablet 0.5 Mg PO PRN BID PRN Levothyroxine Sodium 50 Mcg Tablet 50 Mcg PO DAILYAC Zyprexa (Olanzapine) 2.5 Mg Tablet 2.5 Mg PO QHS Melatonin 3 Mg Tablet 1 Mg PO QHS Amlodipine Besylate 5 Mg Tablet 5 Mg PO DAILY I have reviewed the current psychotropics carefully including drug interactions. Risk benefit ratio favors no change other than as noted in my dictated progress note. Diagnosis: Problems: (1) Bipolar affective disorder, mixed (2) Anxiety disorder (3) Impulse control disorder (4) Mild cognitive disorder YENY BRONSON MD Feb 16, 2018 21:11
--- NOTE | 2018-02-16 21:57 | PN ---
DATE: 02/14/2018 PSYCHIATRIC PROGRESS NOTE This is a late entry 02/14/2018 covers elements not covered in my initial note. SUBJECTIVE: I met with the patient in the evening. The patient slept 7-1/2 hours previous evening, has been somewhat depressed per nursing report, did start Wellbutrin in the morning. He denies suicidal ideation. REVIEW OF SYSTEMS: No CV, , pulmonary, eye, ENT system symptoms on review. MENTAL STATUS EXAM: Oriented to himself and situation. Speech is coherent, has some latency. Abstraction fair, computation impaired, language function intact, attention span short. Mood and affect somewhat dysphoric. LABORATORY DATA: Reviewed. IMPRESSION: Bipolar 1 disorder, depressed, anxiety disorder, unspecified. PLAN: Continue psychotropics from initial note and Wellbutrin was started at 150 mg p.o. a.m. of the XL, may need to increase this gradually. YENY BRONSON MD DR: THEO/bryan JOB#: [id number] / [id number]
--- NOTE | 2018-02-16 21:58 | PN ---
DATE: 02/15/2018 This is a late entry 02/15/2018 covers elements not covered in my initial note. SUBJECTIVE: I met with the patient in the evening. The patient slept 7 hours previous evening, remains somewhat withdrawn, but appropriate. States his mood is better since Wellbutrin was started. We will monitor this. REVIEW OF SYSTEMS: No CV, , pulmonary, eye, ENT system symptoms on review. Gait unsteady with walker. MENTAL STATUS EXAM: Oriented to himself and situation. Speech coherent, abstraction fair, computation impaired, language function intact, attention span short. Mood and affect still somewhat dysphoric, but improved. LABORATORY DATA: Reviewed. IMPRESSION: Unchanged from initial note, bipolar 1 disorder, depressed, in partial remission. Rest unchanged. PLAN: Continue psychotropics from initial note. MAN Michael BRONSON MD DR: THEO/bryan JOB#: [id number] / [id number]
[2018-02-17] MEDS: LEVOTHYROXINE 50 MCG TABLET PO SCH (05:38)
[2018-02-17 06:53] VITALS: BP 130/87
[2018-02-17] MEDS: buPROPion XL 150 MG TAB.ER.24H PO SCH (09:31)
[2018-02-17] MEDS: amLODIPine BESYLATE 5 MG TABLET PO SCH (09:31)
[2018-02-17] MEDS: DOCUSATE SODIUM 100 MG CAPSULE PO SCH ×2 (09:31→19:28)
[2018-02-17] MEDS: OXcarbazepine 150 MG TABLET. PO SCH (09:31)
[2018-02-17] MEDS: CHOLECALCIFEROL (VITAMIN D3) 50,000 UNIT CAPSULE PO SCH (09:32)
[2018-02-17 16:23] VITALS: BP 131/91
[2018-02-17] MEDS: OLANZapine 2.5 MG TABLET PO SCH (19:28)
--- NOTE | 2018-02-17 20:38 | PDOC ---
Exam Note: Maurice Note: Please also refer to the separate dictated note~for this date of service dictated separately.~Patient seen individually. Discussed the patient with Nursing staff reviewed the chart.~Reviewed interim history and current functioning. Reviewed vital signs,~Labs/ Radiology~and current medications noted below. Continue current treatment with the changes noted in the dictated addendum note Assessment: Vital Signs: Vital Signs Date Time Temp Pulse Resp B/P (MAP) Pulse Ox O2 Delivery O2 Flow Rate FiO2 02/17/18 16:23 98.9 84 16 131/91 (104) 97 02/16/18 06:38 Room Air I&O Intake and Output 02/17/18 06:59 Intake Total 1440 ml Balance 1440 ml Intake Oral 1440 ml # Voids 1 Current Medications: Meds: Current Medications Acetaminophen (Tylenol) 650 mg PRN Q6HRS PRN PO PAIN / TEMP; Start 02/03/18 at 00:45 Al Hydroxide/Mg Hydroxide (Mylanta Plus Xs) 15 ml PRN AFTMEALHC PRN PO DYSPEPSIA; Start 02/03/18 at 00:45 Magnesium Hydroxide (Milk Of Magnesia) 2,400 mg PRN QHS PRN PO CONSTIPATION; Start 02/03/18 at 00:45 Clonazepam (KlonoPIN) 0.5 mg PRN BID PRN PO ANXIETY / AGITATION; Start at 01:00; Stop 02/05/18 at 10:58; Status DC Olanzapine (ZyPREXA ZYDIS) 2.5 mg PRN DAILY PRN PO ANXIETY / AGITATION; Start 02/03/18 at 01:00 Amlodipine Besylate (Norvasc) 5 mg DAILY PO Last administered on 02/17/18at 09:31 ; Start 02/03/18 at 09:00 Levothyroxine Sodium (Synthroid) 50 mcg DAILY07 PO Last administered on at 05:38; Start 02/03/18 at 07:00 Melatonin 3 mg PRN QHS PRN PO INSOMNIA Last administered on 02/12/18at 19:29; Start 02/03/18 at 01:15 Non-Formulary Medication (Melatonin ) 5 mg PRN QHS PRN PO INSOMNIA; Start 02/03 at 01:00; Status UNV Olanzapine (ZyPREXA) 2.5 mg QHS PO Last administered on 02/17/18 19:28; Start 02/03/18 at 21:00 Polyethylene Glycol (miraLAX) 17 gm PRN DAILY PRN PO CONSTIPATION; Start at 09:00 Vitamin D (Vitamin D3) 50,000 unit WEEKLY PO Last administered on 02/17/18 09: 32; Start 02/03/18 at 15:45 Oxcarbazepine (Trileptal) 150 mg BID PO Last administered on 02/07/18 19:54; Start 02/04/18 at 21:00; Stop 02/07/18 at 21:50; Status DC Oxcarbazepine (Trileptal) 150 mg DAILY PO Last administered on 02/17/18 09:31; Start 02/08/18 at 09:00 Oxcarbazepine (Trileptal) 300 mg HS PO Last administered on 02/17/18 19:28; Start 02/08/18 at 21:00 Docusate Sodium (Colace) 100 mg BID PO Last administered on 02/17/18 19:28; Start 02/08/18 at 09:00 Bupropion HCl (Wellbutrin Xl) 150 mg DAILY PO Last administered on 02/17/18 09: 31; Start 02/14/18 at 09:00 Active Scripts Active Reported Miralax (Polyethylene Glycol 3350) 17 Gm Powd.pack 17 Gm PO PRN DAILY PRN Zyprexa Zydis (Olanzapine) 5 Mg Tab.rapdis 2.5 Mg PO PRN DAILY PRN Melatonin 3 Mg Tablet 5 Mg PO PRN QHS PRN Clonazepam 0.5 Mg Tablet 0.5 Mg PO PRN BID PRN Levothyroxine Sodium 50 Mcg Tablet 50 Mcg PO DAILYAC Zyprexa (Olanzapine) 2.5 Mg Tablet 2.5 Mg PO QHS Melatonin 3 Mg Tablet 1 Mg PO QHS Amlodipine Besylate 5 Mg Tablet 5 Mg PO DAILY I have reviewed the current psychotropics carefully including drug interactions. Risk benefit ratio favors no change other than as noted in my dictated progress note. Diagnosis: Problems: (1) Bipolar affective disorder, mixed (2) Anxiety disorder (3) Impulse control disorder (4) Mild cognitive disorder YENY BRONSON MD Feb 17, 2018 20:37
--- NOTE | 2018-02-18 00:27 | PN ---
DATE: 02/16/2018 This is a late entry, 02/16/2018, covers the elements not covered in my initial note. SUBJECTIVE: I met with the patient in the evening. The patient slept 7-1/4 hours the previous evening, remains fairly oriented, somewhat anxious, depressed, but better than before. REVIEW OF SYSTEMS: No CV, , pulmonary, eye system symptoms on review. Gait unsteady with walker. MENTAL STATUS EXAM: Oriented to himself, situation and insight fair. Judgment intact. Mood and affect still somewhat dysphoric, anxious, but improved. No suicidal ideation. LABORATORY DATA: Reviewed. IMPRESSION: Unchanged from initial note. PLAN: No change from initial note. MAN Michael BRONSON MD DR: THEO/bryan JOB#: [id number] / [id number]
[2018-02-18] MEDS ORDERED: ACET500T68 PO (01:10)
[2018-02-18] MEDS ORDERED: DOCU-109 PO (01:11)
[2018-02-18] MEDS ORDERED: CHOL500021 PO (01:11)
[2018-02-18] MEDS ORDERED: MAG30ORA2 PO (01:13)
[2018-02-18] MEDS ORDERED: MAGN400O7 PO (01:14)
[2018-02-18] MEDS ORDERED: OXCA150T3 PO (01:18)
[2018-02-18] MEDS ORDERED: OXCA300T3 PO (01:19)
[2018-02-18] MEDS ORDERED: BUPR150T15 PO (01:21)
[2018-02-18] MEDS: LEVOTHYROXINE 50 MCG TABLET PO SCH (05:38)
[2018-02-18 05:57] VITALS: BP 137/81
[2018-02-18] MEDS: DOCUSATE SODIUM 100 MG CAPSULE PO SCH (07:41)
[2018-02-18] MEDS: buPROPion XL 150 MG TAB.ER.24H PO SCH (07:41)
[2018-02-18 07:42] VITALS: BP 137/81
[2018-02-18] MEDS: amLODIPine BESYLATE 5 MG TABLET PO SCH (07:42)
[2018-02-18] MEDS: OXcarbazepine 150 MG TABLET. PO SCH (07:42)
[2018-02-18] MEDS ORDERED: OXcarbazepine 150 MG TABLET. PO SCH (17:00)
--- NOTE | 2018-02-18 18:04 | PDOC ---
Exam Note: Maurice Note: Please also refer to the separate dictated note~for this date of service dictated separately.~Patient seen individually. Discussed the patient with Nursing staff reviewed the chart.~Reviewed interim history and current functioning. Reviewed vital signs,~Labs/ Radiology~and current medications noted below. Continue current treatment with the changes noted in the dictated addendum note Assessment: Vital Signs: Vital Signs Date Time Temp Pulse Resp B/P (MAP) Pulse Ox O2 Delivery O2 Flow Rate FiO2 02/18/18 07:42 58 137/81 02/18/18 05:57 97.7 20 94 02/16/18 06:38 Room Air I&O Intake and Output 02/18/18 07:00 Intake Total 1440 ml Balance 1440 ml Intake Oral 1440 ml # Voids 1 Current Medications: Meds: Current Medications Acetaminophen (Tylenol) 650 mg PRN Q6HRS PRN PO PAIN / TEMP; Start 02/03/18 at 00:45; Stop 02/18/18 at 12:53; Status DC Al Hydroxide/Mg Hydroxide (Mylanta Plus Xs) 15 ml PRN AFTMEALHC PRN PO DYSPEPSIA; Start 02/03/18 at 00:45; Stop 02/18/18 at 12:53; Status DC Magnesium Hydroxide (Milk Of Magnesia) 2,400 mg PRN QHS PRN PO CONSTIPATION; Start 02/03/18 at 00:45; Stop 02/18/18 at 12:53; Status DC Clonazepam (KlonoPIN) 0.5 mg PRN BID PRN PO ANXIETY / AGITATION; Start at 01:00; Stop 02/05/18 at 10:58; Status DC Olanzapine (ZyPREXA ZYDIS) 2.5 mg PRN DAILY PRN PO ANXIETY / AGITATION; Start 02/03/18 at 01:00; Stop 02/18/18 at 12:53; Status DC Amlodipine Besylate (Norvasc) 5 mg DAILY PO Last administered on 02/18/18at 07:42 ; Start 02/03/18 at 09:00; Stop 02/18/18 at 12:53; Status DC Levothyroxine Sodium (Synthroid) 50 mcg DAILY07 PO Last administered on at 05:38; Start 02/03/18 at 07:00; Stop 02/18/18 at 12:53; Status DC Melatonin 3 mg PRN QHS PRN PO INSOMNIA Last administered on 02/12/18 19:29; Start 02/03/18 at 01:15; Stop 02/18/18 at 12:53; Status DC Non-Formulary Medication (Melatonin ) 5 mg PRN QHS PRN PO INSOMNIA; Start 02/03 at 01:00; Status UNV Olanzapine (ZyPREXA) 2.5 mg QHS PO Last administered on 02/17/18 19:28; Start 02/03/18 at 21:00; Stop 02/18/18 at 12:53; Status DC Polyethylene Glycol (miraLAX) 17 gm PRN DAILY PRN PO CONSTIPATION; Start at 09:00; Stop 02/18/18 at 12:53; Status DC Vitamin D (Vitamin D3) 50,000 unit WEEKLY PO Last administered on 02/17/18at 09: 32; Start 02/03/18 at 15:45; Stop 02/18/18 at 12:53; Status DC Oxcarbazepine (Trileptal) 150 mg BID PO Last administered on 02/07/18at 19:54; Start 02/04/18 at 21:00; Stop 02/07/18 at 21:50; Status DC Oxcarbazepine (Trileptal) 150 mg DAILY PO Last administered on 02/18/18at 07:42; Start 02/08/18 at 09:00; Stop 02/18/18 at 12:09; Status DC Oxcarbazepine (Trileptal) 300 mg HS PO Last administered on 02/17/18 19:28; Start 02/08/18 at 21:00; Stop 02/18/18 at 12:53; Status DC Docusate Sodium (Colace) 100 mg BID PO Last administered on 02/18/18 07:41; Start 02/08/18 at 09:00; Stop 02/18/18 at 12:53; Status DC Bupropion HCl (Wellbutrin Xl) 150 mg DAILY PO Last administered on 02/18/18 07: 41; Start 02/14/18 at 09:00; Stop 02/18/18 at 12:53; Status DC Oxcarbazepine (Trileptal) 150 mg BID@0900,1700 PO ; Start 02/18/18 at 17:00; Stop 02/18/18 at 17:00; Status DC Active Scripts Active Reported Wellbutrin Xl (Bupropion Hcl) 150 Mg Tab.er.24h 150 Mg PO DAILY Trileptal (Oxcarbazepine) 300 Mg Tablet 300 Mg PO HS Trileptal (Oxcarbazepine) 150 Mg Tablet 150 Mg PO [id number] Milk Of Magnesia (Magnesium Hydroxide) 400 Mg/5 Ml Oral.susp 2,400 Mg PO PRN QHS PRN Mag-Al Plus Xs Suspension (Mag Hydrox/Al Hydrox/Simeth) 30 Ml Oral.susp 15 Ml PO PRN BFRMEALHC PRN Colace (Docusate Sodium) 100 Mg Capsule 100 Mg PO BID D3-50 (Cholecalciferol (Vitamin D3)) 50,000 Unit Capsule 50,000 Unit PO WEEKLY ON FRIDAY Acetaminophen 500 Mg Tablet 650 Mg PO PRN Q6HRS PRN Miralax (Polyethylene Glycol 3350) 17 Gm Powd.pack 17 Gm PO PRN DAILY PRN Zyprexa Zydis (Olanzapine) 5 Mg Tab.rapdis 2.5 Mg PO PRN DAILY PRN Melatonin 3 Mg Tablet 3 Mg PO PRN QHS PRN Levothyroxine Sodium 50 Mcg Tablet 50 Mcg PO DAILYAC Zyprexa (Olanzapine) 2.5 Mg Tablet 2.5 Mg PO QHS Amlodipine Besylate 5 Mg Tablet 5 Mg PO DAILY I have reviewed the current psychotropics carefully including drug interactions. Risk benefit ratio favors no change other than as noted in my dictated progress note. Diagnosis: Problems: (1) Impulse control disorder (2) Anxiety disorder (3) Bipolar affective disorder, mixed (4) Mild cognitive disorder YNEY BRONSON MD Feb 18, 2018 18:04
--- NOTE | 2018-02-18 22:39 | PN ---
DATE: 02/17/2018 PSYCHIATRIC PROGRESS NOTE This is a late entry, 02/17, covers elements not covered in my initial note. SUBJECTIVE: I met with the patient in the evening. The patient slept 7-1/4 hours previous evening, remains somewhat withdrawn at times, but very appropriate. No suicidal ideation. REVIEW OF SYSTEMS: Ambulation impaired with walker. No CV, , pulmonary, eye system symptoms on review. MENTAL STATUS EXAM: I met with the patient at length to discuss discharge plans for 02/18. He is quite pleased with his improvement in his mood, but talked at length about having to take on day-to-day activities at home including cooking and other things together with his and might get overwhelmed with this. Processed this at some length. No CV, , pulmonary, eye system symptoms on review. MENTAL STATUS EXAM: Reasonably oriented. Speech coherent, abstraction fair, computation reasonable, language function intact. Mood and affect less withdrawn. LABORATORY DATA: Reviewed. IMPRESSION: Unchanged from initial note. Bipolar 1 disorder, depressed, in partial remission; anxiety disorder, unspecified. PLAN: No change from initial note. MAN Michael BRONSON MD DR: THEO/bryan JOB#: [id number] / [id number]
--- NOTE | 2018-02-20 12:12 | DS ---
DATE OF DISCHARGE: 02/18/2018 DISCHARGE SUMMARY/PSYCHIATRIC PROGRESS NOTE This is late entry, date of service 02/18, covers elements not covered in my initial note of 02/18. REASON FOR ADMISSION: Please refer to the admission history for details. Briefly, the patient is a 77-year-old male referred to us from [facility] in [place], [place], on account of worsening confusion, delusions, suicidal ideation within the context of his bipolar disorder. The patient had been treated outpatient on Seroquel, which was gradually increased for his mood swings and depressive symptoms and then he had a fall. He was admitted to [facility], was voicing suicidal ideation, remained depressed, psychotic, and referred for inpatient psychiatric hospitalization. SIGNIFICANT FINDINGS AND CLINICAL COURSE: Following admission, the patient was seen daily individually by myself, followed medically by Dr. Mcdonough/Dr. Rahman. He was initially voicing suicidal ideation, but no active plans, appeared depressed, was having mood swings, some paranoia. Adjustments were made in his psychotropics. He seemed to respond to a combination of Wellbutrin-XL 150 mg a day, Trileptal 150 mg a.m. and 300 mg at bedtime for his bipolar disorder, Zyprexa p.r.n., melatonin p.r.n. Gradually, mood appeared to improve. He denied suicidal ideation. He was ambulating better with a walker. REVIEW OF SYSTEMS: No CV, , pulmonary, eye system symptoms on review. MENTAL STATUS EXAM: Oriented to him reasonably. Speech is coherent, abstraction fair, computation somewhat impaired, language function intact, attention span short. Mood and affect was much less depressed. No active suicidal ideation at discharge. CONDITION ON DISCHARGE: Improved. FINAL DIAGNOSES: Bipolar 1 disorder, depressed with psychotic features, in partial remission; anxiety disorder, unspecified; cognitive disorder, unspecified. Rest unchanged from admission. DISCHARGE MEDICATIONS: Please refer to the MRAD. DISCHARGE INSTRUCTIONS: Outpatient psychiatric and medical followup is arranged with his primary care physician and outpatient psychiatrist. Time for discharge day management greater than 30 minutes. MAN Michael BRONSON MD DR: THEO/bryan JOB#: [id number] / [id number]
== END 2018-02-18 12:53 | disposition home or self-care (01) | DRG 885 ==
LOC: GEROPSY 00:14
PROVIDERS: ADMIT Psychiatry & Neurology Psychiatry; ATTEND Psychiatry & Neurology Psychiatry
DX: F31.5 Bipolar disorder, current episode depressed, severe, with psychotic features (principal); G20 Parkinson's disease; F31.75 Bipolar disorder, in partial remission, most recent episode depressed; M19.90 Unspecified osteoarthritis, unspecified site; E03.9 Hypothyroidism, unspecified; E55.9 Vitamin D deficiency, unspecified; E78.5 Hyperlipidemia, unspecified; F09 Unspecified mental disorder due to known physiological condition; F41.9 Anxiety disorder, unspecified; G62.9 Polyneuropathy, unspecified; F63.9 Impulse disorder, unspecified; I48.0 Paroxysmal atrial fibrillation; M10.9 Gout, unspecified; M47.816 Spondylosis without myelopathy or radiculopathy, lumbar region; I12.9 Hypertensive chronic kidney disease with stage 1 through stage 4 chronic kidney disease, or unspecified chronic kidney disease; Z96.651 Presence of right artificial knee joint; K59.00 Constipation, unspecified; N18.9 Chronic kidney disease, unspecified; W18.39XA Other fall on same level, initial encounter; Y93.89 Activity, other specified; Y92.89 Other specified places as the place of occurrence of the external cause; Y99.8 Other external cause status; Z79.899 Other long term (current) drug therapy; Z82.0 Family history of epilepsy and other diseases of the nervous system; Z80.0 Family history of malignant neoplasm of digestive organs; Z82.49 Family history of ischemic heart disease and other diseases of the circulatory system; Z87.891 Personal history of nicotine dependence; Z85.828 Personal history of other malignant neoplasm of skin; Z98.49 Cataract extraction status, unspecified eye
CPT/HCPCS: 36415; 80053; 80061; 81001; 82306; 82607; 83036; 83540; 83550; 83735; 84436; 84443; 84480; 85025; 86592; 93005